=== PATIENT | female | born 1935 | race Caucasian/White ===

== ENCOUNTER 2017-08-19 10:17 | Emergency (ER) | payer OTHER ==
--- NOTE | 2017-08-19 10:45 | EDPHY ---
H & P Stated Complaint: LBP Source: Patient Exam Limitations: No limitations - Personal History Current Tetanus/Diphtheria Vaccine: Yes Tetanus Vaccine Date: <10 YRS - Medical/Surgical History Hx Asthma: No Hx Chronic Respiratory Disease: No Hx Diabetes: No Hx Cardiac Disease: No Hx Renal Disease: No Hx Cirrhosis: No Hx Alcoholism: No Other PMH: Richmond's, scoliosis, OA, hypothyroid - Social History Smoking Status: Never smoked Time Seen by Provider: 08/19/17 10:44 HPI/ROS: HPI: This is a 81-year-old female who presents with Chief Complaint: Low back pain Location: Left-sided lumbar Quality: Pain Duration: Since Friday Signs and Symptoms: No bleeding, + radiation, no numbness, no weakness, no tingling, no incontinence, + decreased range of motion, no swelling, + pain, no fever, no trauma, no urinary symptoms Timing: Rapid onset Severity: 10/03 Context: Patient presents with a history of scoliosis with rapid onset of left lower back pain that radiates down into her left buttock and then into her left anterior thigh and stops at the knee. Symptoms started on Friday. She reports that she has had no trauma or injury. She has been cleared out of storage shed but does not believe that she has done any heavy lifting or twisting that would have caused the symptoms. Patient reports that she has been using a cane to aid ambulation and secondary to difficulty with range of motion in her lower back. Patient reports that she has a"collapsed spine." She has chronic pain issues that are managed with oxycodone 10 mg daily, Tylenol, aspirin. She took these medications around 4:00 a.m. And has had no relief of the pain. She denies any urinary symptoms or change in urinary or bowel habits. 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 Modifying Factors: See above Comment: ROS: see HPI Constitutional: No fever, no chills, no weight loss Eyes: No blurred vision Respiratory: No shortness of breath, no cough Cardiovascular: No chest pain Gastrointestinal: No nausea, no vomiting no diarrhea Genitourinary: No dysuria Extremities: No myalgias Neurologic: No weakness, no numbness Skin: No rashes Hematologic: No bruising, no bleeding MEDICAL/SURGICAL/SOCIAL HISTORY: Medical history: Richmond's, scoliosis, OA, hypothyroid Surgical history: Denies Social history: Retired. Never smoked CONSTITUTIONAL: Extremely polite and cooperative elderly white female, awake and alert, no obvious distress HEENT: Atraumatic and normocephalic. BACK: No midline tenderness, left lower back lumbar reproducible tenderness in the paraspinous muscles; no paraspinous spasm, deep tendon reflexes 2/2, mild pain with left straight leg raise, no pain with right straight leg raise, No foot drop. Achilles reflexes are equal bilaterally. Not Able to walk on heels and toes without difficulty. Using cane to aid ambulation. EXTREMITIES: 2/2 pulses, strength 5/5, DIP/PIP/MCP flexion/extension intact with good light touch sensation. no deformities, no clubbing, no cyanosis or edema. NEUROLOGICAL: no focal neuro deficits. GCS 15. Light touch sensation intact. SKIN: Warm and dry, no erythema. no rash. Good capillary refill. (Nancy Nava) Constitutional: Initial Vital Signs Temperature (C) 36.6 C 08/19/17 10:34 Heart Rate 115 H 08/19/17 10:34 Respiratory Rate 16 08/19/17 10:34 Blood Pressure 193/93 H 08/19/17 10:34 O2 Sat (%) 94 08/19/17 10:34 O2 Delivery Mode Room Air Allergies/Adverse Reactions: atorvastatin calcium [From Lipitor] Allergy (Severe, Verified 08/19/17 10:39) MUSCLE WEAKNESS/CRAMPING IN THIGHS Home Medications: Medication Instructions Recorded Simvastatin [Zocor] 40 mg PO DAILY18 04/26/11 Aspirin [Aspirin 325 mg (OTC)] 325 mg PO Q6 PRN 09/12/11 Acetaminophen [Pain Reliever] 650 mg PO Q6 PRN 10/01/11 Cortisone Acetate [Cortisone (RX)] 37.5 mg PO DAILY 10/01/11 Lisinopril [Zestril 20 mg (*)] 10 mg PO DAILY 10/01/11 oxyCODONE IR [Oxycodone HCl Ir] 1 tab PO TID 10/01/11 Alendronate Sodium [Fosamax 70 MG 70 mg PO WE@0700 03/30/13 (RX)] Calcium Carbonate [Tums 500MG 750 mg PO DAILY 03/30/13 (OTC)] Levothyroxine [Synthroid 88 mcg 88 mcg PO DAILY06 03/30/13 (RX)] Loperamide HCl/Simethicone 1 each PO PRN PRN 03/30/13 [Imodium Multi-Symptom Rel Cplt] Multivitamins [Tab-A-Karel] 1 each PO DAILY 03/30/13 Sodium Chloride [Salt Tablet] 1 gm PO AD 03/30/13 Cyclobenzaprine [Flexeril 10 MG 10 mg PO Q8 PRN #12 tab 08/19/17 (*)] HYDROmorphone HCL [Dilaudid 2 mg 2 mg PO Q6 PRN #10 tab 08/19/17 (*)] Medical Decision Making - Diagnostics Imaging Results: Imaging Impressions Lumbar Spine MRI 08/19/17 10:53 Impression: 1. Old severe L4 compression fracture with retropulsion, likely representing a benign osteoporotic compression fracture. Consider DEXA bone scan evaluation for osteoporosis. 2. L3-L4: Severe central canal stenosis and bilateral neural foraminal stenosis , secondary to severe degenerative disk disease, severe bilateral facet arthropathy, and posterior retropulsion of the L4 cortex. 3. L2-L3: Severe central canal stenosis, secondary to severe degenerative disease with central disk herniation and bilateral facet arthropathy, also resulting in neural foraminal stenosis as described above. 4. Severe dextroscoliosis upper lumbar spine. 5. Please see above findings at specific disk levels. Findings and recommendations discussed with Emergency Department physician, Nancy Nava PA-C, at 1300 hours on August 19, 2017. Final report concurs with initial preliminary interpretation. ED Course/Re-evaluation: Due to advanced age and rapid onset of symptoms; MRI of the lumbar spine ordered. Patient given IV Dilaudid 1 mg. Called by Radiology who advised that MRI lumbar spine shows old fracture of the L4 compression that is moderate to severe in nature. Patient has multilevel degenerative changes but the most severe is at L2-L3 and L3-L4 with central canal stenosis. 1330: Reassessed patient who is ambulatory to the bathroom without deficits. Offered patient admission for pain control neurosurgery consult and she prefers to be discharged home with outpatient follow-up. Will not Rx Medrol Dosepak due to adrenal insufficiency and regular cortisone use. Patient given a prescription for #10 Dilaudid and Flexeril. No signs of neurovascular compromise/tenting of skin/compartment syndrome/ extremities and joints examined above and below area of concern and are neurovascularly intact/cauda equina syndrome. This patient was seen under the supervision of my secondary supervising physician. I evaluated care for this patient independently. Discussed this patient with Dr. Fields. (Nancy Nava) Differential Diagnosis: Back pain including but not limited to muscular pain, herniated disc, spine fracture, intra-abdominal causes and urinary tract infection. (Nancy Nava) Other Provider: PHYSICIAN DOCUMENTATION: The patient was evaluated and managed by the Physician Equities Trader and myself. I have reviewed the chart and agree with the findings and plan of care as documented. In addition, I examined the patient myself at 1420. History confirmed as back pain, nontraumatic. Physical findings as follows: Patient is alert and ambulatory to and from the bathroom with a cane without assistance. She declined admission or neurosurgical consultation, wants to go home with pain medication. Has capacity to make decisions. No objective neurological deficit on exam. I am the secondary supervising physician. (Robert Fields) - Data Points Medications Given: Discontinued Medications Diazepam (Valium) 2.5 mg IVP EDNOW ONE Stop: 08/19/17 12:00 Last Admin: 08/19/17 12:02 Dose: 2.5 mg Hydromorphone HCl (Dilaudid) 1 mg IVP EDNOW ONE Stop: 08/19/17 10:55 Last Admin: 08/19/17 11:15 Dose: 1 mg Methylprednisolone Sodium Succinate (Solu-Medrol) 125 mg IVP EDNOW ONE Stop: 08/19/17 13:01 Last Admin: 08/19/17 13:40 Dose: 125 mg Departure - Departure Disposition: Home, Routine, Self-Care Clinical Impression: Central stenosis of spinal canal, Lumbar degenerative disc disease, Lumbar radiculopathy, Facet arthropathy, lumbar Closed compression fracture of L4 lumbar vertebra Qualifiers: Encounter type: sequela Qualified Code(s): S32.040S - Wedge compression fracture of fourth lumbar vertebra, sequela Condition: Good Instructions: Vertebral Compression Fracture (ED), Lumbar Spinal Stenosis (ED) , Degenerative Disc Disease (ED) Additional Instructions: Activity:Limit activity to pain tolerance. Activity resulting in pain should be avoided. Please discontinue taking oxycodone while taking Dilaudid 2 mg tablet every 6 hours as needed for severe, breakthrough pain. Take Flexeril every 8 hours as needed for muscle spasms. Continue to take cortisone as prescribed. Follow-up with Neurosurgery in 5-7 days to discuss treatment plan for old compression fracture and severe degenerative disc disease with central canal stenosis. Return to the ER immediately if you have new or worsening back pain, fevers/ chills, flu like symptoms, incontinence or inability to urinate or defecate, weakness, paralysis, or any other symptom that concerns you Referrals: Tyler Faulkner MD [Primary Care Provider] - As per Instructions [place] MD [Medical Doctor] - 5-7 days, call for appt. Prescriptions: Cyclobenzaprine [Flexeril 10 MG (*)] 10 mg PO Q8 PRN #12 tab PRN Reason: Spasms HYDROmorphone HCL [Dilaudid 2 mg (*)] 2 mg PO Q6 PRN #10 tab PRN Reason: Pain, Severe
[2017-08-19] MEDS ORDERED: HYDROmorphONE/DILAUDID 2 MG/ML INJ IVP ONE (10:54)
[2017-08-19] MEDS ORDERED: DIAZEPAM 5 MG/ML 1 ML SYR ONE (11:57)
[2017-08-19] MEDS ORDERED: DIAZEPAM 5 MG/ML 1 ML SYR IVP ONE (11:59)
[2017-08-19] MEDS ORDERED: methylPREDNISolone SOD SUCC 125 MG/2 ML VIAL IVP ONE (13:00)
[2017-08-19 14:21] VITALS: BP 181/91
== END 2017-08-19 14:50 | disposition home or self-care (01) ==
DX: M84.48XA Pathological fracture, other site, initial encounter for fracture (principal); M54.16 Radiculopathy, lumbar region; M51.36 Other intervertebral disc degeneration, lumbar region; M48.061 Spinal stenosis, lumbar region without neurogenic claudication; M46.96 Unspecified inflammatory spondylopathy, lumbar region; Z79.82 Long term (current) use of aspirin
CPT/HCPCS: 72148; 96374; 96375; 99285; J1170; J2930; J3360

== ENCOUNTER 2017-11-23 16:52 | Inpatient (IN) | payer OTHER ==
--- NOTE | 2017-11-23 17:13 | EDPHY ---
H & P Stated Complaint: CHRONIC LOWBACK BACK/HAD INJ KALYANI SALAZAR NOT BETTER Time Seen by Provider: 11/23/17 17:01 HPI/ROS: HPI: This is an 81-year-old female who presents with Chief Complaint: CHRONIC LOWBACK BACK/HAD INJECTIONS SPINE MARTIN NOT BETTER Location: Lower back Quality: Pain Duration: Several months Signs and Symptoms: No radiation, no incontinence, + decreased range of motion , no swelling, no change in bowel or bladder habits Timing: Acute on chronic Severity: 11/03 Context: Patient has a history of Jamin's disease takes chronic steroid therapy, presents with complaints of acute on chronic lumbar back pain that is slowly worsening since July. She reports that she was seen in this emergency room on August 19, 2017 and had a lumbar spine MRI ordered. Chart review shows the lumbar spine showing old severe L4 compression fracture with retropulsion L3 -L4 severe central canal stenosis and bilateral neural foraminal stenosis secondary to severe degenerative disc disease and posterior rib pole troncoso of the L4 cortex, L2-L3 severe central canal stenosis secondary to severe degenerative disease with central disc herniation and bilateral facet arthropathy, severe dextroscoliosis. At that time she was referred to [facility]rology [facility] [place]. At the end of July beginning of August she had 3 lumbar GIRISH injections. She reports that these made her"feel funny". She reports that her head "felt like it was spacey." Patient took a taxi today as she has lives alone and has been using a cane to aid ambulation secondary to pain that is not relieved by taking 1-2 oxycodone as daily. She reports that in the past she has tried gabapentin but that made her"out of her head." Patient advises that she is not a surgical candidate. She reports that she is not able to perform activities of daily living today and unable to take out the trash which is not usually not her norm. She has not fallen or had any trauma. Reports that she has had a poor appetite but 8 salt today and has been taking sips of water. Patient also complains of bilateral hips but denies any degenerative changes in her hip. Modifying Factors: See above Comment: ROS: A comprehensive 10 system review of systems is otherwise negative aside from elements mentioned in the history of present illness. MEDICAL/SURGICAL/SOCIAL HISTORY: Medical history: Slick's, scoliosis, OA, hypothyroid, BACK PAIN, hyperlipidemia Surgical history: Lumbar GIRISH, spinal fusion Social history: Retired. Used to work on a ranch. Family history noncontributory. CONSTITUTIONAL: Tearful, elderly, petite, nontoxic-appearing white female, awake and alert, no obvious distress HEENT: Atraumatic and normocephalic. NECK: supple, no midline tenderness, flexion 45 degrees, extension 45 degrees, right and left lateral flexion 45 degrees. No meningismus. Cardiovascular: Normal S1/S2, regular rate, regular rhythm, without murmur rub or gallop. PULMONARY/CHEST: Symmetrical and nontender. no crepitus. Clear to auscultation bilaterally. Good air movement. No accessory muscle usage. ABDOMEN: Soft, nondistended, nontender, no ecchymosis. PELVIC: no pain with rocking; bilateral hips flexion 125 degrees, extension 30 degrees, with no pain internal rotation and no pain external rotation. BACK: Thoracic kyphoscoliosis noted. Moderate mid lumbar midline tenderness, no paraspinous spasm, deep tendon reflexes 2/2, mild pain with bilateral straight leg raise, No foot drop. Achilles reflexes are equal bilaterally. EXTREMITIES: 2/2 pulses, strength 5/5, decreased light touch sensation. no deformities, no clubbing, no cyanosis or edema. Lower extremities show chronic venous stay shows with her left ankle showing approximately 4 mm stage I superficial ulceration with clear drainage. NEUROLOGICAL: no focal neuro deficits. GCS 15. Light touch sensation intact. SKIN: Warm and dry, pallor, thin. no erythema. Good capillary refill. Source: Patient Exam Limitations: No limitations - Personal History Current Tetanus Diphtheria and Acellular Pertussis (TDAP): Yes Tetanus Vaccine Date: <10 YRS - Medical/Surgical History Hx Asthma: No Hx Chronic Respiratory Disease: No Hx Diabetes: No Hx Cardiac Disease: No Hx Renal Disease: No Hx Cirrhosis: No Hx Alcoholism: No Hx HIV/AIDS: No Hx Splenectomy or Spleen Trauma: No Other PMH: Jamin's, scoliosis, OA, hypothyroid BACK PAIN - Social History Smoking Status: Never smoked Constitutional: Initial Vital Signs Temperature (C) 36.8 C 11/23/17 16:57 Heart Rate 112 H 11/23/17 16:57 Respiratory Rate 18 11/23/17 16:57 Blood Pressure 175/84 H 11/23/17 16:57 O2 Sat (%) 92 11/23/17 16:57 O2 Delivery Mode Room Air Allergies/Adverse Reactions: atorvastatin calcium [From Lipitor] Allergy (Severe, Verified 11/23/17 16:52) MUSCLE WEAKNESS/CRAMPING IN THIGHS Home Medications: Medication Instructions Recorded Simvastatin [Zocor] 40 mg PO DAILY18 04/26/11 Aspirin [Aspirin 325 mg (OTC)] 325 mg PO Q6 PRN 09/12/11 Acetaminophen [Pain Reliever] 650 mg PO Q6 PRN 10/01/11 Cortisone Acetate [Cortisone (RX)] 37.5 - 50 mg PO DAILY 10/01/11 Lisinopril [Zestril 20 mg (*)] 20 mg PO DAILY 10/01/11 oxyCODONE IR [Oxycodone HCl Ir] 1 - 2 tab PO TID PRN 10/01/11 Calcium Carbonate [Tums 500MG 750 mg PO DAILY 03/30/13 (OTC)] Levothyroxine [Synthroid 88 mcg 88 mcg PO DAILY06 03/30/13 (RX)] Multivitamins [Tab-A-Karel] 1 each PO DAILY 03/30/13 Sodium Chloride [Salt Tablet] 1 gm PO AD PRN 03/30/13 Medical Decision Making ED Course/Re-evaluation: Vital signs reviewed and show mild tachycardia. Lumbar sacral MRI obtained 08/19/2017 and I do not feel of repeat is indicated at this time. No red flags at this time to indicate emergent MRI. Patient given 500 cc normal saline and Percocet x2 Laboratory studies ordered along with urinalysis ED decision to consult for admission for acute on chronic intractable lower back pain. Patient may benefit from physical therapy and occupational therapy consult inpatient. 1800: Spoke with hospitalist, Dr. Erazo, kindly agrees to admit patient to provide further care. Urinalysis and laboratory study results pending at time of consult. 2024: Labs reviewed. Leukocytosis likely secondary to steroid use. No clear signs of infection. This patient was seen under the supervision of my secondary supervising physician. I evaluated care for this patient independently. Discussed this patient with Dr. Dee. Differential Diagnosis: Back pain including but not limited to muscular pain, herniated disc, spine fracture, intra-abdominal causes and urinary tract infection. - Data Points Laboratory Results: Laboratory Results 11/23/17 17:30 11/23/17 17:30 11/23/17 11/23/17 11/23/17 17:50 17:30 17:30 WBC RBC Hgb Hct MCV MCH MCHC RDW Plt Count MPV Neut % (Auto) Lymph % (Auto) [place] % (Auto) Eos % (Auto) Baso % (Auto) Nucleat RBC Rel Count Absolute Neuts (auto) Absolute Lymphs (auto) Absolute Monos (auto) Absolute Eos (auto) Absolute Basos (auto) Absolute Nucleated RBC Immature Gran % Seg Neutrophils % Band Neutrophils % Lymphocytes % Monocytes % Eosinophils % Basophils % Metamyelocytes % Myelocytes % Promyelocytes % Blast Cells % Immature Gran # Absolute Seg Neuts Absolute Band Neuts Absolute Lymphocytes Absolute Monocytes Absolute Eosinophils Absolute Basophils Absolute Metamyelocyte Absolute Myelocytes Absolute Promyelocytes Absolute Plasma Cells Nucleated RBCs Absolute Blast Cells Plasma Cells % Platelet Estimate Polychromasia Oval Macrocytes PT 14.2 SEC SEC (12.0-15.0) INR 1.08 (0.83-1.16) APTT 27.5 SEC SEC (23.0-38.0) Sodium 142 mEq/L mEq/L (135-145) Potassium 2.9 mEq/L L mEq/L (3.3-5.0) Chloride 101 mEq/L mEq/L (97-110) Carbon Dioxide 26 mEq/l mEq/l (22-31) Anion Gap 15 mEq/L mEq/L (8-16) BUN 17 mg/dL mg/dL (7-23) Creatinine 0.5 mg/dL L mg/dL (0.6-1.0) Estimated GFR > 60 Glucose 84 mg/dL mg/dL (70-100) Calcium 8.9 mg/dL mg/dL (8.5-10.4) Total Bilirubin 0.2 mg/dL mg/dL (0.1-1.4) AST 40 IU/L IU/L (14-46) ALT 28 IU/L IU/L (9-52) Alkaline Phosphatase 215 IU/L H IU/L (38-126) Total Protein 5.8 g/dL L g/dL (6.3-8.2) Albumin 3.2 g/dL L g/dL (3.5-5.0) TSH < 0.015 uIU/mL L uIU/mL (0.465-4.680) Urine Color YELLOW Urine Appearance HAZY Urine pH 5.0 (5.0-7.5) Ur Specific [place] 1.027 (1.002-1.030) Urine Protein 2+ H (NEGATIVE) Urine Ketones 1+ H (NEGATIVE) Urine Blood 2+ H (NEGATIVE) Urine Nitrate NEGATIVE (NEGATIVE) Urine Bilirubin NEGATIVE (NEGATIVE) Urine Urobilinogen NEGATIVE EU EU (0.2-1.0) Ur Leukocyte Esterase NEGATIVE (NEGATIVE) Urine RBC 10-15 /hpf H /hpf (0-3) Urine WBC 5-10 /hpf H /hpf (0-3) Ur Epithelial Cells TRACE /lpf /lpf (NONE-1+) Urine Bacteria TRACE /hpf H /hpf (NONE SEEN) Hyaline Casts 25-50 /lpf H /lpf (0-1) Urine Mucus TRACE /lpf /lpf (NONE-1+) Urine Glucose NEGATIVE (NEGATIVE) 11/23/17 17:30 WBC 26.85 10^3/uL H 10^3/uL (3.80-9.50) RBC 3.47 10^6/uL L 10^6/uL (4.18-5.33) Hgb 11.7 g/dL L g/dL (12.6-16.3) Hct 34.7 % L % (38.0-47.0) MCV 100.0 fL H fL (81.5-99.8) MCH 33.7 pg pg (27.9-34.1) MCHC 33.7 g/dL g/dL (32.4-36.7) RDW 14.6 % % (11.5-15.2) Plt Count 502 10^3/uL H 10^3/uL (150-400) MPV 9.3 fL fL (8.7-11.7) Neut % (Auto) Not Reported Lymph % (Auto) Not Reported [place] % (Auto) Not Reported Eos % (Auto) Not Reported Baso % (Auto) Not Reported Nucleat RBC Rel Count Not Reported Absolute Neuts (auto) Not Reported Absolute Lymphs (auto) Not Reported Absolute Monos (auto) Not Reported Absolute Eos (auto) Not Reported Absolute Basos (auto) Not Reported Absolute Nucleated RBC Not Reported Immature Gran % Not Reported Seg Neutrophils % 92.0 % % Band Neutrophils % 0.0 % % Lymphocytes % 5.0 % % Monocytes % 3.0 % % Eosinophils % 0.0 % % Basophils % 0.0 % % Metamyelocytes % 0.0 % % Myelocytes % 0.0 % % Promyelocytes % 0.0 % % Blast Cells % 0.0 % % Immature Gran # Not Reported Absolute Seg Neuts 24.70 10^/uL H 10^/uL (1.70-6.50) Absolute Band Neuts 0.00 10^3/uL 10^3/uL (0.00-0.70) Absolute Lymphocytes 1.34 10^3/uL 10^3/uL (1.00-3.00) Absolute Monocytes 0.81 10^3/uL H 10^3/uL (0.30-0.80) Absolute Eosinophils 0.00 10^3/uL L 10^3/uL (0.03-0.40) Absolute Basophils 0.00 10^3/uL L 10^3/uL (0.02-0.10) Absolute Metamyelocyte 0.00 10^3/mL 10^3/mL (0.00-0.00) Absolute Myelocytes 0.00 10^3/mL 10^3/mL (0.00-0.00) Absolute Promyelocytes 0.00 10^3/uL 10^3/uL (0.00-0.00) Absolute Plasma Cells 0.00 10^3/uL 10^3/uL (0.00-0.00) Nucleated RBCs 0 /100 WBC /100 WBC (0-0) Absolute Blast Cells 0.00 10^3/uL 10^3/uL (0.00-0.00) Plasma Cells % 0.0 % % Platelet Estimate INCREASED H (ADEQ) Polychromasia 1+ H Oval Macrocytes 1+ H PT INR APTT Sodium Potassium Chloride Carbon Dioxide Anion Gap BUN Creatinine Estimated GFR Glucose Calcium Total Bilirubin AST ALT Alkaline Phosphatase Total Protein Albumin TSH Urine Color Urine Appearance Urine pH Ur Specific [place] Urine Protein Urine Ketones Urine Blood Urine Nitrate Urine Bilirubin Urine Urobilinogen Ur Leukocyte Esterase Urine RBC Urine WBC Ur Epithelial Cells Urine Bacteria Hyaline Casts Urine Mucus Urine Glucose Medications Given: Hydrocodone Bitart/Acetaminophen (Stuart 5/325) 1 - 2 tab PO Q4HRS PRN PRN Reason: Pain, Moderate Able to Take PO Stop: 12/03/17 18:02 Last Admin: 11/23/17 20:15 Dose: 1 tab Lisinopril (Zestril) 20 mg PO DAILY RODNEY Stop: 05/22/18 19:14 Last Admin: 11/23/17 20:22 Dose: 20 mg Senna/Docusate Sodium (Senokot-S) 1 - 2 tab PO BID RODNEY PRN Reason: Protocol Stop: 05/22/18 20:59 Last Admin: 11/23/17 20:14 Dose: 1 tab Discontinued Medications Sodium Chloride (Ns) 500 mls @ 1,000 mls/hr IV EDNOW ONE PRN Reason: Protocol Stop: 11/23/17 17:58 Last Admin: 11/23/17 17:55 Dose: 500 mls Oxycodone/Acetaminophen (Percocet 5/325) 2 tab PO EDNOW ONE Stop: 11/23/17 17:24 Last Admin: 11/23/17 17:33 Dose: 2 tab Potassium Chloride (Klor-Con) 10 - 40 meq PO ONCE ONE PRN Reason: Protocol Stop: 11/23/17 19:44 Last Admin: 11/23/17 20:15 Dose: 40 meq Potassium Chloride (Klor-Con) 10 - 40 meq PO ONCE ONE PRN Reason: Protocol Stop: 11/23/17 20:06 Last Admin: 11/23/17 20:19 Dose: Not Given Departure - Departure Disposition: [facility] Acute Clinical Impression: Acute exacerbation of chronic low back pain, DDD (degenerative disc disease), lumbar, Central stenosis of spinal canal, Herniation of intervertebral disc of lumbar spine, Venous ulcer of left leg Closed compression fracture of L4 lumbar vertebra Qualifiers: Encounter type: subsequent encounter Fracture healing: with delayed healing Qualified Code(s): S32.040G - Wedge compression fracture of fourth lumbar vertebra, subsequent encounter for fracture with delayed healing Condition: Fair
[2017-11-23] MEDS ORDERED: OXYCODONE/APAP 5/325 TAB PO ONE (17:23)
[2017-11-23] MEDS ORDERED: NS 500 ML IV ONE (17:29)
[2017-11-23] MEDS ORDERED: ONDANSETRON 4 MG/2 ML VIAL IVP PRN (18:03)
[2017-11-23] MEDS ORDERED: ONDANSETRON DISINTEGRATING 4 MG TAB PO PRN (18:03)
[2017-11-23] MEDS ORDERED: HYDROmorphONE/DILAUDID 1 MG/ML INJ IVP PRN (18:03)
[2017-11-23] MEDS ORDERED: ACETAMINOPHEN 325 MG TAB PO PRN (18:03)
[2017-11-23 18:42] LABS: INR 1.08 (0.83-1.16); PROTIME(PATIENT) 14.2 SEC (12.0-15.0)
[2017-11-23] MEDS ORDERED: ASPIRIN 325 MG TAB PO PRN (19:04)
[2017-11-23] MEDS ORDERED: PROTOCOL POTASSIUM 1 DOSE MISC PRN (19:05)
--- NOTE | 2017-11-23 19:06 | PDGENHP ---
History and Physical - Chief Complaint Lower back pain - History of Present Illness Ary Walker is a 81 yo F with a PMHx of Cusing's disease, chronic lumbar back pain, hypothyroidism, HTN who presents to [facility] for acute on chronic LBP. She reports that it has been progressively worsening since July. She was seen in the [facility] ED 08/19/2017 when lumbar MRI was performed which showed old severe L4 compression fracture with retropulsion L3-L4 severe central canal stenosis and bilateral neural foraminal stenosis secondary to severe degenerative disc disease and posterior rib pole troncoso of the L4 cortex, L2-L3 severe central canal stenosis secondary to severe degenerative disease with central disc herniation and bilateral facet arthropathy, severe dextroscoliosis. At that time she was referred [facility]. At the end of July beginning of August she had 3 lumbar GIRISH injections. She did not have significant improvement after these. She reports she has been having difficulty ambulating 2/2 to pain, using a cane for walking. She has been taking 1-2 oxycodone daily without any relief. She denies any falls or LOC. History Information - Allergies/Home Medication List Allergies/Adverse Reactions: atorvastatin calcium [From Lipitor] Allergy (Severe, Verified 11/23/17 16:52) MUSCLE WEAKNESS/CRAMPING IN THIGHS Home Medications: Simvastatin [Zocor] 40 mg PO DAILY18 04/26/11 [Last Taken 11/22/17] Aspirin [Aspirin 325 mg (OTC)] 325 mg PO Q6 PRN 09/12/11 [Last Taken 11/23/17] Acetaminophen [Pain Reliever] 650 mg PO Q6 PRN 10/01/11 [Last Taken 11/23/17] Cortisone Acetate [Cortisone (RX)] 37.5 - 50 mg PO DAILY 10/01/11 [Last Taken ] Lisinopril [Zestril 20 mg (*)] 20 mg PO DAILY 10/01/11 [Last Taken 04/06/13 07: 00] oxyCODONE IR [Oxycodone HCl Ir] 1 - 2 tab PO TID PRN 10/01/11 [Last Taken ] Calcium Carbonate [Tums 500MG (OTC)] 750 mg PO DAILY 03/30/13 [Last Taken ] Levothyroxine [Synthroid 88 mcg (RX)] 88 mcg PO DAILY06 03/30/13 [Last Taken ] Multivitamins [Tab-A-Karel] 1 each PO DAILY 03/30/13 [Last Taken 11/23/17] Sodium Chloride [Salt Tablet] 1 gm PO AD PRN 03/30/13 [Last Taken 04/04/13] I have personally reviewed and updated: family history, medical history, social history, surgical history - Past Medical History Additional medical history: Jamin's disease, scoliosdis, hypothyroid, HTN - Surgical History Additional surgical history: B/l adrenalectomy - Family History Additional family history: Parents - Social History Smoking Status: Never smoked Review of Systems Review of Systems: ROS: 10pt was reviewed & negative except for what was stated in HPI & below Physical Exam Physical Exam: Temp Pulse Resp BP Pulse Ox 36.8 C 97 17 184/89 H 93 11/23/17 18:39 11/23/17 18:39 11/23/17 18:39 11/23/17 18:39 11/23/17 18:39 Constitutional: no apparent distress Eyes: PERRL Ears, Nose, Mouth, Throat: moist mucous membranes Cardiovascular: regular rate and rhythym Respiratory: no respiratory distress, clear to auscultation Gastrointestinal: soft, non-tender abdomen Genitourinary: no bladder tenderness Skin: warm Musculoskeletal: full muscle strength, pain with ROM Neurologic: AAOx3 Psychiatric: interacting appropriately Lab Data & Imaging Review 11/23/17 17:30 11/23/17 17:30 PT 14.2 SEC (12.0-15.0) 11/23/17 17:30 INR 1.08 (0.83-1.16) 11/23/17 17:30 APTT 27.5 SEC (23.0-38.0) 11/23/17 17:30 Sodium 142 mEq/L (135-145) 11/23/17 17:30 Potassium 2.9 mEq/L (3.3-5.0) L 11/23/17 17:30 Chloride 101 mEq/L (97-110) 11/23/17 17:30 Carbon Dioxide 26 mEq/l (22-31) 11/23/17 17:30 Anion Gap 15 mEq/L (8-16) 11/23/17 17:30 BUN 17 mg/dL (7-23) 11/23/17 17:30 Creatinine 0.5 mg/dL (0.6-1.0) L 11/23/17 17:30 Estimated GFR > 60 11/23/17 17:30 Glucose 84 mg/dL (70-100) 11/23/17 17:30 Calcium 8.9 mg/dL (8.5-10.4) 11/23/17 17:30 Total Bilirubin 0.2 mg/dL (0.1-1.4) 11/23/17 17:30 AST 40 IU/L (14-46) 11/23/17 17:30 ALT 28 IU/L (9-52) 11/23/17 17:30 Alkaline Phosphatase 215 IU/L (38-126) H 11/23/17 17:30 Total Protein 5.8 g/dL (6.3-8.2) L 11/23/17 17:30 Albumin 3.2 g/dL (3.5-5.0) L 11/23/17 17:30 Urine Color YELLOW 11/23/17 17:50 Urine Appearance HAZY 11/23/17 17:50 Urine pH 5.0 (5.0-7.5) 11/23/17 17:50 Ur Specific [place] 1.027 (1.002-1.030) 11/23/17 17:50 Urine Protein 2+ (NEGATIVE) H 11/23/17 17:50 Urine Ketones 1+ (NEGATIVE) H 11/23/17 17:50 Urine Blood 2+ (NEGATIVE) H 11/23/17 17:50 Urine Nitrate NEGATIVE (NEGATIVE) 11/23/17 17:50 Urine Bilirubin NEGATIVE (NEGATIVE) 11/23/17 17:50 Urine Urobilinogen NEGATIVE EU (0.2-1.0) 11/23/17 17:50 Ur Leukocyte Esterase NEGATIVE (NEGATIVE) 11/23/17 17:50 Urine RBC 10-15 /hpf (0-3) H 11/23/17 17:50 Urine WBC 5-10 /hpf (0-3) H 11/23/17 17:50 Ur Epithelial Cells TRACE /lpf (NONE-1+) 11/23/17 17:50 Urine Bacteria TRACE /hpf (NONE SEEN) H 11/23/17 17:50 Hyaline Casts 25-50 /lpf (0-1) H 11/23/17 17:50 Urine Mucus TRACE /lpf (NONE-1+) 11/23/17 17:50 Urine Glucose NEGATIVE (NEGATIVE) 11/23/17 17:50 Assessment & Plan Assessment: Acute exacerbation of chronic low back pain (Acute) - Seen in ED in 07/2017 with MRI performed which showed old L4 compression fx with retropulsion L3-L4 severe central canal stenosis and bilateral neural foraminal stenosis secondary to severe degenerative disc disease and posterior rib pole troncoso of the L4 cortex, L2-L3 severe central canal stenosis secondary to severe degenerative disease with central disc herniation and bilateral facet arthropathy, severe dextroscoliosis - S/p spinal injections by Dr. Cabrera ([facility] [place] with no significant improvement - Has been using oxycodone 5 mg q6 hours at home - Denies red flag symptoms of weakness, numbness, incontinence - Holding off on repeat MRI for now given lack of red flag sx - Consult neurosurgery in the AM for further evaluation - Pain control PRN Venous ulcer of left leg (Acute) - Reports swelling of LE with chronic steroid use - Wound care consulted Leukocytosis - WBC 26.8 on admission - Afebrile - No clear source of infection other than venous ulcer which does not appear infected - Will hold off on abx for now, if febrile or persistent leukocytosis treat as appropriate Hypertensive Urgency - BP 180/100 on admission to floor - Patient reports this is normal for her - Restarting home Lisinopril Jamin's Disease s/p adrenalectomy - Continue home steroids, 37.5 mg qd Hypothyroidism - Continue home synthroid FEN: PRN Diet: Regular Ppx: Lovenox Code: Full Dispo: Admit to Observation
[2017-11-23 19:13] LABS: PLATELET COUNT 502 10^3/uL (150-400)
[2017-11-23] MEDS ORDERED: LACTULOSE 20 GM/30 ML UDCUP PO PRN (19:32)
[2017-11-23] MEDS ORDERED: MAGNESIUM HYDROXIDE 30 ML UDCUP PO PRN (19:32)
[2017-11-23] MEDS ORDERED: BISACODYL 10 MG SUPP PR PRN (19:32)
[2017-11-23] MEDS ORDERED: POTASSIUM CL 10 MEQ TAB PO ONE ×2 (19:43→20:05)
[2017-11-23] MEDS: SENNOSIDES/DOCUSATE SODIUM TAB PO SCH (20:14)
[2017-11-23] MEDS: HYDROCODONE/APAP 5/325 TAB PO PRN (20:15)
[2017-11-23] MEDS: LISINOPRIL 20 MG TAB PO SCH (20:22)
[2017-11-23] MEDS: LIDOCAINE 4%/MENTHOL 1% PATCH TD SCH (23:12)
[2017-11-24] MEDS: HYDROCODONE/APAP 5/325 TAB PO PRN ×5 (04:12→21:48)
[2017-11-24 04:41] LABS: PLATELET COUNT 473 10^3/uL (150-400)
[2017-11-24] MEDS: LEVOTHYROXINE 88 MCG TAB PO SCH (05:12)
[2017-11-24] MEDS: ENOXAPARIN 40 MG/0.4 ML SYR SC SCH (09:18)
[2017-11-24] MEDS: CALCIUM CARBONATE 500 MG CHEWABLE TAB PO SCH (09:19)
[2017-11-24] MEDS: LISINOPRIL 20 MG TAB PO SCH (09:21)
[2017-11-24] MEDS: CORTISONE PO SCH (09:21)
[2017-11-24] MEDS: SENNOSIDES/DOCUSATE SODIUM TAB PO SCH ×2 (09:22→21:47)
[2017-11-24] MEDS ORDERED: POTASSIUM CL 10 MEQ TAB PO ONE (09:39)
--- NOTE | 2017-11-24 10:49 | WOCRNPDOC ---
[facility] Advanced Assessment Note - Skin Integrity Problem, Advanced Assess Left Anterior Lower Leg Venous Stasis Ulcer Dressing Type: Open to Air Exudate Amount: Minimal Exudate Characteristic(s): Serous Megan Wound Tissue: Blanching, Weeping, Hemosiderin Staining Wound Bed Color: Yellow Wound Edges: Attached Site Odor: None Site Measurement - Head-to-Toe Length X Width X Depth (cm): 0.6x0.4x0.1 Skin Integrity Problem Comment: Wound cleansed with NS and gauze. Small open area on patient's troncoso that is weeping. Patient states this has been going on for 5 or 6 days. Patient noted to have several "bruises" on her lower legs which she states have been there for years and called them "hemorrhages under the skin." No edema noted on the lower legs, however, bilateral feet have non- pitting edema that when palpated, fluid is palpable under the skin. Alban NICOLAS was in room and made aware. Bilateral lower legs have hemosiderian staining and venous dermatitis. Wound care will sign off. If there is an increase in drainage and the dressing is being changed more than once a day, please reconsult wound care.
[2017-11-24] MEDS: PATCH REMOVAL 1 EA PATCH TD SCH (11:20)
--- NOTE | 2017-11-24 11:38 | HOSPPROG ---
Hospitalist Progress Note Assessment/Plan: Hypokalemia - K 2.9 on admission - Will order replacement protocol - Currently on Lisinopril, if K not improved, consider substituting for other BP medication that does not effect K Objective: Vital Signs Temp Pulse Resp BP Pulse Ox 37.5 C 112 H 20 178/86 H 94 11/24/17 07:55 11/24/17 07:55 11/24/17 07:55 11/24/17 09:21 11/24/17 07:55 Laboratory Results 11/24/17 04:20 11/24/17 04:20 11/23/17 11/24/17 11/25/17 05:59 05:59 05:59 Output Total 200 100 Balance -200 -100 PT 14.2 SEC (12.0-15.0) 11/23/17 17:30 INR 1.08 (0.83-1.16) 11/23/17 17:30 ICD10 Worksheet Patient Problems: Problems Problem Status Onset Osteoarthritis of hip Active Empyema Active Hypokalemia Active Closed compression fracture of L4 lumbar vertebra Acute Acute exacerbation of chronic low back pain Acute DDD (degenerative disc disease), lumbar Acute Central stenosis of spinal canal Acute Herniation of intervertebral disc of lumbar spine Acute Venous ulcer of left leg Acute
--- NOTE | 2017-11-24 11:41 | HOSPPROG ---
Hospitalist Progress Note Assessment/Plan: 81y female with c/o back pain. First encounter, chart reviewed. D/W neurosurgery. #Acute exacerbation of chronic low back pain (Acute) - Seen in ED in 07/2017 with MRI performed which showed old L4 compression fx with retropulsion L3-L4 severe central canal stenosis and bilateral neural foraminal stenosis secondary to severe degenerative disc disease and posterior rib pole troncoso of the L4 cortex, L2-L3 severe central canal stenosis secondary to severe degenerative disease with central disc herniation and bilateral facet arthropathy, severe dextroscoliosis - S/p spinal injections by Dr. Cabrera ([facility] [place] with no significant improvement - Has been using oxycodone 5 mg q6 hours at home - Denies red flag symptoms of weakness, numbness, incontinence - Holding off on repeat MRI for now given lack of red flag sx - Consulted neurosurgery for further evaluation - Pain control PRN #Venous ulcer of left leg (Acute) - Reports swelling of LE with chronic steroid use - Wound care consulted #Hypokalemia - K 2.9 on admission - replacement protocol - Currently on Lisinopril, if K not improved, consider substituting for other BP medication that does not effect K #Leukocytosis - WBC 26.8 on admission - Afebrile - No clear source of infection other than venous ulcer which does not appear infected - Will hold off on abx for now, if febrile or persistent leukocytosis treat as appropriate -will get blood cultures, consider further imaging of the spine, recent injection -consider ID consult #Hypertensive Urgency - BP 180/100 on admission to floor - Patient reports this is normal for her - Restarting home Lisinopril #Jamin's Disease s/p adrenalectomy - Continue home steroids, 37.5 mg qd #Hypothyroidism - Continue home synthroid -TSH low, consider adjusting dose FEN: PRN Diet: Regular Ppx: Lovenox Code: Full Dispo: Change to inpt status pt will need further evaluation in hospital setting blood cultures consider MRI, last pone done 07/2017 Subjective: C/O severe back pain. Resting. No other issues. Objective: Vital Signs Temp Pulse Resp BP Pulse Ox 37.5 C 112 H 20 178/86 H 94 11/24/17 07:55 11/24/17 07:55 11/24/17 07:55 11/24/17 09:21 11/24/17 07:55 Laboratory Results 11/24/17 04:20 11/24/17 04:20 11/23/17 11/24/17 11/25/17 05:59 05:59 05:59 Output Total 200 100 Balance -200 -100 PT 14.2 SEC (12.0-15.0) 11/23/17 17:30 INR 1.08 (0.83-1.16) 11/23/17 17:30 - Physical Exam Constitutional: appears nourished, chronically ill appearing, uncomfortable Eyes: PERRL, anicteric sclera, EOMI Ears, Nose, Mouth, Throat: moist mucous membranes, hearing normal, ears appear normal Cardiovascular: No JVD, No tachycardia, No edema Respiratory: no respiratory distress, no rales or rhonchi, reduced air movement Gastrointestinal: normoactive bowel sounds, No tenderness, No ascites Skin: warm, normal color, No mottled Musculoskeletal: joint tenderness, pain with ROM, muscular tenderness, abnormal gait, generalized weakness Neurologic: AAOx3 Psychiatric: interacting appropriately, not anxious, not encephalopathic ICD10 Worksheet Patient Problems: Problems Problem Status Onset Acute exacerbation of chronic low back pain Acute Central stenosis of spinal canal Acute Closed compression fracture of L4 lumbar vertebra Acute DDD (degenerative disc disease), lumbar Acute Herniation of intervertebral disc of lumbar spine Acute Venous ulcer of left leg Acute Empyema Active Hypokalemia Active Osteoarthritis of hip Active
--- NOTE | 2017-11-24 13:19 | GCON ---
CONSULTATION HISTORY AND PHYSICAL DATE OF CONSULTATION: 11/24/2017 CHIEF COMPLAINT: Low back pain with bilateral lower extremity pain. HISTORY OF PRESENT ILLNESS: Ary is an 81-year-old female who was seen by Neurosurgical services at 12:15 p.m. on 11/24/2017. She has a history of Liberty's disease, chronic low back pain as well as hypothyroidism and hypertension. She came in the emergency department on 11/23/2017, for acute on chronic lower back pain. She reports this pain had progressively worsened since July. She was seen in the ER in July of 2017, had a lumbar spine MRI that was performed which showed old, severe L4 compression fracture and retropulsion at L3-4, severe canal stenosis at this level and bilateral neural foraminal stenosis secondary to severe degenerative disk disease. She also had severe central stenosis at L2-3. There was disk herniation and facet arthropathy as well noted at this level. She was referred to [facility], was also seen by Dr. Grace at [facility], and recommendation for injection therapies was given. She has had 2 injections with minimal improvement. She presents at this time with worsening back pain as well as bilateral lower extremity pain that started on the left side and has now progressed over to the right that she describes in the buttocks that radiates toward the front in her anterior thighs. She has no changes in her bowel or bladder habits. She denies any fall or injury. No loss of consciousness. She is currently taking 1-2 oxycodone per day and is receiving [place] here in the hospital for her pain. She denies any headache. No neck pain. No chest pain or shortness of breath. No abdominal complaints. She describes pain in her back pain and bilateral lower extremity pain mainly on the right now and not so much on the left, although it started on the left. ALLERGIES: Atorvastatin. MEDICATIONS PRIOR TO ADMISSION: Zocor, aspirin, acetaminophen, cortisone, Zestril, oxycodone, Tums, Synthroid, multivitamin and salt tabs. PAST MEDICAL HISTORY: Significant for Jamin's disease, scoliosis, hypothyroidism, hypertension. PAST SURGICAL HISTORY: Bilateral adrenalectomy. FAMILY HISTORY: Reviewed and noncontributory. SOCIAL HISTORY: Patient is . She lives in the [place] area. She has never smoked. No risk factors for HIV or AIDS. REVIEW OF SYSTEMS: Complete 10-point review of systems was negative except noted in HPI. PHYSICAL EXAMINATION: GENERAL: This is an awake, alert, oriented female in no acute distress. VITALS: Most recent vital signs blood pressure 142/71 with a MAP of 94, heart rate of 98, 18 respirations, 94% on 1.5 L, temperature 36.8. HEENT. Head is normocephalic, atraumatic. Pupils are equal, round and reactive to light. EOMI is intact. Full visual conrad by confrontation. Ears are patent. Nose is patent. NECK: Soft and supple. No midline tenderness. Full range of motion in flexion, extension, lateral bending, rotation. No nuchal rigidity. RESPIRATORY/CARDIAC: Deferred. ABDOMEN: Soft, nontender. No peritoneal signs. /RECTAL: Deferred. NEURO: Patient awake, alert, oriented to name, place, location, date, time and situation. Memory is intact to immediate, past and current events. Speech: No aphasia, dysarthria, dysphonia. Cranial nerves 2-12 grossly intact. Motor: Patient has 5/5 strength in all muscle groups of bilateral upper and lower extremities to include deltoids, biceps, triceps, brachioradialis, wrist flexors/extensors, satellite instruction facilitator, intrinsic fingers, iliopsoas, quadriceps, hamstring, plantar flexion, dorsiflexion, EHL testing. Sensation grossly intact to light touch throughout all dermatome distributions, upper extremities. Negative straight leg raise. Negative HAY test. Reflexes of the biceps and triceps are 2+/4. Achilles and patellar 1+/4. Toes are downgoing bilaterally. Ventura's negative. Babinski negative. No clonus. MEDICAL DECISION-MAKING/DIAGNOSTIC STUIES: Laboratory tests obtained 11/24/2017 , show a white count of 22.71, down from 26.85; H and H of 12.6 and 37.2; with a platelet count of 473; noted increased segs of 18.85. Coags: PT of 14.2, INR of 1.08, PTT of 27.5. Chemistry on 11/24/2017: Sodium 142, potassium 3.1, chloride 103, CO2 31, BUN 16, creatinine 0.4 and glucose of 70. Urine showed 2 + protein, 2+ ketones and 2+ blood, 10-15 RBCs, 5-10 WBCs noted. Imagin. Pending MRI of the lumbar spine with and without contrast. 2. X-rays of lumbar spine with flexion-extension views ordered. IMPRESSION: 1. Low back pain with bilateral lower extremity pain, history of spinal stenosis. 2. Venous ulcer, left leg. 3. Hyperkalemia. 4. Leukocytosis. 5. Hypertension history as well as Liberty's and hypothyroidism. PLAN/DISCUSSION: Ary is an 81-year-old female who came in yesterday to the hospital, was admitted to the Internal Medicine service with low back pain and bilateral lower extremity pain. She describes mainly pain ow on the right side. She did have pain on the left side, it did start on the left side. She describes pain in both legs and the same distribution of pain in the buttocks, and it radiates over to the anterior thigh, but not much spread of pain below the knee. She has a white count that has been significantly high at 26 and now it is 22. We did order an MRI of her lumbar spine with and without contrast. They did blood cultures on her as well. She has x-rays pending of the lumbar spine with flexion-extension views. The patient was seen and evaluated both by myself and Dr. Foley; will review the images together once these are obtained , develop a plan accordingly. All questions and concerns were answered. Patient understands and agrees. /[id number]/MODL MTDD
--- NOTE | 2017-11-24 14:12 | ASMTCMCOM ---
CM Note CM Note Notes: Patient admitted with acute chronic back pain. She was seen in the ER in July for the same. Per patient, she is normally independent but the pain is interfering with her ADLs. She was seen by neurosurgery today, and they will make a plan with her based on her imaging. Therapies will see her tomorrow. Case Management will follow. Date Signed: 11/24/2017 02:12 PM Electronically Signed By:Lenka Husain RN
[2017-11-24] MEDS ORDERED: GADOBUTROL 10 ML VIAL IVP ONE (14:20)
--- NOTE | 2017-11-24 15:12 | PDMN ---
Medical Necessity Medical necessity: MCG M63 back pain, 81 yo w/ acute on chronic lower back pain , acute venous ulcer, leukocytosis (wbc 26.8 on admit) and hypertensive emergency. Prior MRI of back shows old L4 compression fx with retropulsion L3- L4 severe central canal stenosis and bilateral neural foraminal stenosis secondary to severe degenerative disc disease and posterior rib pole troncoso of the L4 cortex, L2-L3 severe central canal stenosis secondary to severe degenerative disease with central disc herniation and bilateral facet arthropathy, severe dextroscoliosis. has been receiving spinal injections w/o improvement. Neurosurgery and wound consults ordered and pending, MRI ordered and pending. Pt cont with HTN, tachy 118, WBC still elevated 22.17, hypokalemic (3.1), BC pending. Pt requires another MN for ongoing dx, monitoring and treatment. Hx becka's disease and adrenalectomy. Change to IP status 11/24/17 @1152 per [employer]
[2017-11-24] MEDS: POLYETHYLENE GLYCOL 3350 17 GM PKT PO PRN (17:52)
[2017-11-24] MEDS: SIMVASTATIN 40 MG PO SCH (18:48)
[2017-11-24] MEDS: LIDOCAINE 4%/MENTHOL 1% PATCH TD SCH (21:50)
[2017-11-24] MEDS ORDERED: POTASSIUM CL 20 MEQ TAB PO ONE (23:52)
[2017-11-25] MEDS: HYDROCODONE/APAP 5/325 TAB PO PRN ×3 (02:42→18:04)
[2017-11-25] MEDS ORDERED: oxyCODONE IR 5 MG TAB PO ONE (04:46)
[2017-11-25] MEDS: LEVOTHYROXINE 88 MCG TAB PO SCH (05:09)
--- NOTE | 2017-11-25 08:15 | NEUSURGPN ---
Assessment/Plan: Assessment: 81 yo female admitted to with lower back pain and BLE anterior thigh pain that is mainly on the right now Plan: -lumbar spine: pt had xrays of the L spine that show a severe scoliotic curve as well as DDD. No instability noted. MRI of the L spine done as well and this shows severe stenosis mainly at L2-L4 with multilevel DDD and foraminal stenosis. -I will review the images with Dr Foley -surgery would be very difficult for her with regards to the severity of her problem -our hope is to find a nonsurgical treatment for her at this time -I will d/w Dr Foley but will likely recommend another round of injections for her -continue with PT/OT -call with any questions or concerns -pt understands and agrees Subjective: Awake and alert. NAD. Eating/drinking and voiding. No f/c/n/v/d. Objective: AAO x 3, PERRLA/EOMI no droop CN 2-12 grossly intact +lt touch 5/5 BUE/BLE = Neuro Check Frequency: per routine Urinary Catheter in Place: No - Physician Discussed Patient with : [facility] Physical Exam - Vitals, I&O, Labs I and O 11/24/17 11/25/17 11/26/17 05:59 05:59 05:59 Intake Total 740 Output Total 700 Balance 40 Weight 45.359 kg Intake: Oral (ml) 740 Output: Urine (ml) 700 Toilet 700 Other: Number of Voids Toilet 1 Number of Stools Toilet 2 Vital Signs Temp Pulse Resp BP Pulse Ox 36.6 C 108 H 16 144/65 H 97 11/25/17 04:00 11/25/17 04:00 11/25/17 04:00 11/25/17 04:00 11/25/17 04:00 Laboratory Results 11/25/17 04:34 11/25/17 04:34 ICD10 Worksheet Patient Problems: Problems Problem Status Onset Acute exacerbation of chronic low back pain Acute Central stenosis of spinal canal Acute Closed compression fracture of L4 lumbar vertebra Acute DDD (degenerative disc disease), lumbar Acute Herniation of intervertebral disc of lumbar spine Acute Venous ulcer of left leg Acute Empyema Active Hypokalemia Active Osteoarthritis of hip Active
[2017-11-25] MEDS ORDERED: HYDROmorphone HCL 0.5 MG/0.5 ML SYR ONE (08:38)
[2017-11-25] MEDS ORDERED: NS 1,000 ML IV SCH ×2 (09:00→12:30)
[2017-11-25] MEDS: ENOXAPARIN 40 MG/0.4 ML SYR SC SCH ×2 (09:02→12:05)
[2017-11-25] MEDS: LISINOPRIL 20 MG TAB PO SCH (09:17)
[2017-11-25] MEDS: CALCIUM CARBONATE 500 MG CHEWABLE TAB PO SCH (09:18)
[2017-11-25] MEDS: CORTISONE PO SCH (09:18)
[2017-11-25] MEDS: PATCH REMOVAL 1 EA PATCH TD SCH (09:18)
[2017-11-25] MEDS: SENNOSIDES/DOCUSATE SODIUM TAB PO SCH ×2 (09:19→20:48)
[2017-11-25] MEDS ORDERED: ALTEPLASE 2 MG VIAL IVP PRN (11:00)
--- NOTE | 2017-11-25 12:17 | HOSPPROG ---
Hospitalist Progress Note Assessment/Plan: 81y female with c/o back pain. D/W neurosurgery. D/W Dr Bonds. #Acute exacerbation of chronic low back pain (Acute) - MRI done, NSG rec injection. Abdulkadir hold for now - S/p spinal injections by Dr. Cabrera ([facility] with no significant improvement - Has been using oxycodone 5 mg q6 hours at home - Pain control PRN #Venous ulcer of left leg (Acute) - Reports swelling of LE with chronic steroid use - Wound care consulted #Hypokalemia - K 2.9 on admission - replacement protocol - Currently on Lisinopril, if K not improved, consider substituting for other BP medication that does not effect K #Leukocytosis - WBC 26.8 on admission - now with fever -CXR shows PNA -Blood cultures pending -PICC -abx per ID -CT chest -appreciate ID consult #Fever -BC -CXR -further evaluation #Hypertensive Urgency - BP 180/100 on admission to floor - Patient reports this is normal for her - home Lisinopril #Jamin's Disease s/p adrenalectomy - Continue home steroids, 37.5 mg qd #Hypothyroidism - Change synthroid dose -TSH low #Tachycardia -EKG pending -related to illness #Lumbar wound - present prior to admission #Weakness -severe FEN: PRN Diet: Regular Ppx: Lovenox Code: Full Dispo: inpt status pt will need further evaluation in hospital setting blood cultures CT chest further evaluation Subjective: Very thirsty. Still ahving pain all over. Difficulty moving. Objective: Vital Signs Temp Pulse Resp BP Pulse Ox 37.1 C 123 H 20 158/80 H 89 L 11/25/17 11:44 11/25/17 11:44 11/25/17 11:44 11/25/17 11:44 11/25/17 11:44 Laboratory Results 11/25/17 04:34 11/25/17 04:34 11/24/17 11/25/17 11/26/17 05:59 05:59 05:59 Intake Total 740 Output Total 700 200 Balance 40 -200 PT 14.2 SEC (12.0-15.0) 11/23/17 17:30 INR 1.08 (0.83-1.16) 11/23/17 17:30 - Physical Exam Constitutional: chronically ill appearing, uncomfortable, cachectic Eyes: PERRL, anicteric sclera, EOMI Ears, Nose, Mouth, Throat: hearing normal, ears appear normal, dry mucous membranes Cardiovascular: tachycardia, No JVD, No edema Respiratory: no respiratory distress, no rales or rhonchi, reduced air movement Gastrointestinal: normoactive bowel sounds, No tenderness, No ascites Skin: warm, pressure ulcer, No mottled Musculoskeletal: joint tenderness, pain with ROM, muscular tenderness, generalized weakness Neurologic: AAOx3 Psychiatric: not anxious, not encephalopathic, poor insight, poor judgement ICD10 Worksheet Patient Problems: Problems Problem Status Onset Acute exacerbation of chronic low back pain Acute Central stenosis of spinal canal Acute Closed compression fracture of L4 lumbar vertebra Acute DDD (degenerative disc disease), lumbar Acute Herniation of intervertebral disc of lumbar spine Acute Venous ulcer of left leg Acute Empyema Active Hypokalemia Active Osteoarthritis of hip Active
--- NOTE | 2017-11-25 12:34 | GCON ---
INFECTIOUS DISEASE CONSULTATION DATE OF CONSULTATION: 11/25/2017 REFERRING PHYSICIAN: Jacqui Lewis NP REASON FOR CONSULTATION: Fever and leukocytosis. HISTORY OF PRESENT ILLNESS: Patient is an 81-year-old female with a past medical history of empyema due to Streptococcus intermedius in 2011, who I am asked to see in consultation for fever and leukocy tosis. The patient was admitted on 11/24/2017, with worsening low back pain. She has been receiving back injections at [facility] over the last several months for progressive back pain. She describes having significant pain in her inguinal region and thighs bilaterally. Ultimately, she could no alia tova walk in association with her pain and was having to use a wheelchair. She has felt progressively weak with poor appetite. She did not note fever ir chills prior to admission. At time of presentation, she was noted to have a white blood cell count of 27,000 with left shift. T his has remained elevated in the 22,000 range. Blood cultures obtained yesterday are showing no grow th to date. Earlier this morning, she had a fever to 38.4 and developed progressive tachycardia. e notes mild cough without significant sputum production. No recent dental work or dental problems. No recent travel. No nausea, vomiting, or diarrhea. Additional evaluation has included a flu by PCR testing, which is pending. Chest x-ray was performed and shows significant right-sided consolidation with new consolidation present in the upper lung fie ld suggesting pneumonia. Apical pleural thickening and nodularity were also present. MRA of the lum bar spine shows severe central canal narrowing at L2-3 and L3-4 with no evidence of osteomyelitis, di skitis, or epidural abscess. Given the above findings, I am now asked to assist in her ongoing manag ement. 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 PAST SURGICAL HISTORY: Chest tube drainage of empyema, adrenalectomy, exploratory laparotomy with si gmoid colectomy and end-colostomy with subsequent reversal. CURRENT MEDICATIONS: [place] as needed for pain, aspirin 325 mg as needed, Tums 750 mg orally daily, c ortisone 37.5 mg p.o. daily, Lovenox 40 mg subcu daily, Dilaudid for severe pain, Synthroid 88 mcg p. o. daily, lisinopril 20 mg p.o. daily, Zocor 40 mg p.o. daily. ALLERGIES: Lipitor associated muscle cramping. SOCIAL HISTORY: Patient does not smoke, drink alcohol, or use drugs. 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 No recent travel. FAMILY HISTORY: Grandparents with diabetes. REVIEW OF SYSTEMS: Outside that noted in the HPI, the remainder of 10-system review is unremarkable. PHYSICAL EXAMINATION: VITAL SIGNS: Temperature maximum 38.4, heart rate 123, respiratory rate 20, b lood pressure 158/80, oxygen saturation 89% on 1.5 L. GENERAL: Patient is chronically ill-appearing . She appears nontoxic. HEENT: There is no scleral icterus, conjunctival injection, or conjunctiva l petechiae. Oropharynx shows dry mucous membranes with dentition in fair repair. There is no sinus tenderness. There is no nasal discharge. NECK: Supple without palpable lymphadenopathy or thyrome santos. CHEST: There are crackles and decreased breath sounds in the right lower and mid lung conrad. Respiratory effort is normal. There is occasional weak cough. CARDIOVASCULAR: Tachycardic, with a 2/6 systolic murmur at the left upper sternal border. No gallops or rubs noted. ABDOMEN: Soft, n ontender, nondistended. There is no palpable organomegaly. Bowel sounds are present. MUSCULOSKELET AL: There is no cyanosis, clubbing, or edema. SKIN: Venous insufficiency changes of both lower ext remities are present. There is pressure related erythema with small areas of skin breakdown over the lumbar spine around area of scoliotic curvature without purulence. There is a small ulceration of t he right lateral malleolar region. There is a small shallow ulceration over left anterior troncoso. ADAMA ROLOGIC: Patient is alert and interacts appropriately. Cranial nerves 2-12 are grossly intact. Sen sation is intact. Muscle bulk is decreased throughout. Motor strength in the feet is 5/5 bilaterall y. LYMPHATICS: No cervical or supraclavicular nodes. LABORATORY/IMAGING: White blood cell count 22.5, hematocrit 31.3, platelets 448,; prior differential showed neutrophils 83%. Creatinine 0.4. AST 40, ALT 28, bilirubin 0.2, alkaline phosphatase 215, a lbumin 3.2. INR is 1.1. Flu by PCR is pending. Urinalysis shows 5-10 white blood cells and 10-15 r ed blood cells. Chest x-ray showing new right upper lung field infiltrate. MRI of the spine is noted above. IMPRESSION: Fever and leukocytosis: Most likely, this is associated with new onset right-sided pneu monia. Patient has prior history of empyema on this side as well and some pleural thickening, likely residual from prior empyema. Influenza swabs are pending to ensure no evidence of influenza contrib uting. Most likely pathogens would include Streptococcus pneumoniae or other typical pathogens assoc iated with community-acquired pneumonia. Legionella would be in the differential diagnosis, although no discrete exposures. Aspiration also of consideration, although no difficulty with swallowing. O ther considerations would include potential of primary bacteremia from organisms, such as Staphylococ cus aureus. RECOMMENDATIONS: 1. Ceftriaxone 2 g IV daily. 2. Azithromycin 500 mg IV daily. 3. Follow up blood cultures as available. 4. Follow up influenza swab as available. 5. Urine Legionella and Streptococcus pneumoniae antigens. 6. CT scan of chest to further characterize right-sided pulmonary infiltrate. 7. Will review with Hospital Service consideration of stress dose steroids based on patient's underl librado adrenal insufficiency on chronic replacement doses of hydrocortisone. 8. Thank you for this consultation. We will continue to follow the patient with you. /[id number]/MODL
[2017-11-25] MEDS ORDERED: POTASSIUM Cl (KCl) 50 ML IV ONE (14:09)
[2017-11-25] MEDS: AZITHROMYCIN IV 500 MG in NS 250 ML IV SCH (14:50)
--- NOTE | 2017-11-25 17:01 | CPEKG ---
Test Reason : OPEN Blood Pressure : / mmHG Vent. Rate : 110 BPM Atrial Rate : 110 BPM P-R Int : 130 ms QRS Dur : 075 ms QT Int : 335 ms P-R-T Axes : 040 008 059 degrees QTc Int : 454 ms Sinus tachycardia Probable left atrial enlargement Low voltage, precordial leads Compared with 10/01/2011 QT now shorter Confirmed by Estrella Manzano ([id number]) on 11/25/2017 5:01:16 PM Referred By: Confirmed By:Estrella Manzano
[2017-11-25] MEDS: POLYETHYLENE GLYCOL 3350 17 GM PKT PO PRN (18:06)
[2017-11-25] MEDS: SIMVASTATIN 40 MG PO SCH (18:08)
[2017-11-25] MEDS: LIDOCAINE 4%/MENTHOL 1% PATCH TD SCH (20:46)
[2017-11-26] MEDS: HYDROCODONE/APAP 5/325 TAB PO PRN ×4 (05:15→20:55)
[2017-11-26] MEDS: LEVOTHYROXINE 75 MCG TAB PO SCH (05:15)
[2017-11-26] MEDS: CALCIUM CARBONATE 500 MG CHEWABLE TAB PO SCH (07:43)
[2017-11-26] MEDS: ENOXAPARIN 40 MG/0.4 ML SYR SC SCH (07:45)
[2017-11-26] MEDS: CORTISONE PO SCH (07:45)
[2017-11-26] MEDS: LISINOPRIL 20 MG TAB PO SCH (07:46)
[2017-11-26] MEDS: AZITHROMYCIN IV 500 MG in NS 250 ML IV SCH (08:33)
[2017-11-26] MEDS ORDERED: POTASSIUM Cl (KCl) 50 ML IV ONE (09:59)
--- NOTE | 2017-11-26 10:02 | WOCRNPDOC ---
WOCRN Advanced Assessment Note - Skin Integrity Problem, Advanced Assess Left Anterior Lower Leg Venous Stasis Ulcer Dressing Type: Allevyn Life Dressing Description: Intact, Shadowed Exudate Amount: Minimal Exudate Characteristic(s): Serous Integumentary Issue Intervention: Dressing Removed Megan Wound Tissue: Hemosiderin Staining, Venous Dermatitis, Dry Megan Wound Swelling: Mild Wound Bed Color: Yellow Site Measurement - Head-to-Toe Length X Width X Depth (cm): 0.6x0.4x0.1 Skin Integrity Problem Comment: No change from last time wound care rounded on the patient. Shelby NICOLAS said the dressing was placed Friday and due to be changed today. wound is only mildly draining. Edema in feet seems improved since Friday. Will continue with current plan of care. Shelby NICOLAS and Michelle RN in room for care. Wound care will round again next week. Lower Back Pressure Injury Dressing Type: Allevyn Life Dressing Description: Clean/Dry, Intact Exudate Amount: None Integumentary Issue Intervention: Visualized Under Dressing Megan Wound Tissue: Blanching Wound Bed Color: Purple Site Measurement - Head-to-Toe Length X Width X Depth (cm): Approximately 5x2 area of purple discoloration with small opening in the center measuring 0.5x0.5x0.1 Pressure Injury Stage: Deep Tissue Injury (DTI) Pressure Injury Present on Admit: Yes Skin Integrity Problem Comment: Area of purple discoloration along spine with a center area that is open that is a deep tissue injury that is present on admission. The injury is likely 48 to 72 hours old. Patient has a severe curvature of her spine which makes it difficult to get her positioned off of her back with comfort. This wound will continue to evolve over the next week or so and the open area may get larger. No evidence of skin breakdown at sacrum or ishiums noted. Right lateral malleolus is red, but blanching. Allevyn dressing on prophylactically and patient is in offloading boots. Shelby NICOLAS and Michelle NICOLAS in room for care. Wound care will round again next week.
[2017-11-26] MEDS: PATCH REMOVAL 1 EA PATCH TD SCH (11:23)
[2017-11-26] MEDS: SENNOSIDES/DOCUSATE SODIUM TAB PO SCH ×2 (11:23→22:54)
[2017-11-26] MEDS ORDERED: SODIUM CHLORIDE 1,000 MG TAB PO PRN (11:49)
--- NOTE | 2017-11-26 14:56 | ASMTCMCOM ---
CM Note CM Note Notes: Pt amenable to OT rec for SNF. Pt accepted at [facility], [facility] and [facility], chooses [facility] (Shira met with pt today). Pt to have video swallow tomorrow. CM to follow. D/c plan of care: [facility] when medically stable. Date Signed: 11/26/2017 02:41 PM Electronically Signed By:ERICK Holm
--- NOTE | 2017-11-26 16:58 | PCMIDPN ---
Assessment/Plan: # RUL/RML PNA, leukocytosis improving, AF 24 hours, off O2 supplementation, feeling stronger. CT scan of chest reviewed --agree with swallowing eval --continue with ceftriaxone + azithromycin --minimal coughing so will hold off on getting sputum --legionella An pending # Adrenal insufficiency: on chr steroids # Diarrhea: cdiff neg meds ceftriaxone 2gm IV daily #2 azithromycin 500mg IV #2 micro 11/24 blood cx (2) NGTD Subjective: improving appetite still with frequent liquid stool no rash or itching Objective: Vital Signs Temp Pulse Resp BP Pulse Ox 36.6 C 104 H 14 145/82 H 95 11/26/17 15:48 11/26/17 15:48 11/26/17 15:48 11/26/17 15:48 11/26/17 15:48 Laboratory Results 11/26/17 05:10 11/26/17 05:10 11/25/17 11/26/17 11/27/17 05:59 05:59 05:59 Intake Total 014 873 4726 Output Total 700 475 Balance 40 -75 1205 - Physical Exam General Appearance: alert, no apparent distress EENT: No thrush Respiratory: crackles (R upper and mid lung field), No accessory muscle use Cardiac/Chest: regular rate, rhythm Extremities: pedal edema Abdomen: non-tender, soft Pelvic Exam: No guajardo Skin: warm/dry, pallor, No diaphoresis, No rash Neuro/Psych: alert, normal mood/affect, oriented x 3 - Time Spent With Patient Time Spent with Patient: greater than 25 minutes Time Spent with Patient: Greater than 25 minutes spent on this patients care, greater than 50% of time spent counseling, educating, and coordinating care regarding the above mentioned plan. ICD10 Worksheet Patient Problems: Problems Problem Status Onset Acute exacerbation of chronic low back pain Acute Central stenosis of spinal canal Acute Closed compression fracture of L4 lumbar vertebra Acute DDD (degenerative disc disease), lumbar Acute Herniation of intervertebral disc of lumbar spine Acute Venous ulcer of left leg Acute Empyema Active Hypokalemia Active Osteoarthritis of hip Active
[2017-11-26] MEDS: SIMVASTATIN 40 MG PO SCH (19:22)
[2017-11-26] MEDS ORDERED: POTASSIUM CL 10 MEQ TAB PO ONE (20:53)
[2017-11-26] MEDS: LIDOCAINE 4%/MENTHOL 1% PATCH TD SCH (20:56)
--- NOTE | 2017-11-26 22:05 | HOSPPROG ---
Hospitalist Progress Note Assessment/Plan: #Acute exacerbation of chronic low back pain (Acute) - MRI done, NSG rec injection, she declines for now - S/p spinal injections by Dr. Cabrera ([facility] [place] with no significant improvement - Pain control PRN #Venous ulcer of left leg (Acute) - says secondary to chronic steroid use - Wound care appreciated #Hypokalemia - K 2.9 on admission, improved now - replacement protocol #R sided PNA - CXR/CT revwd -Blood cultures pending -PICC -tmax 101 10 -abx per ID -concerning for aspiration, CAMPAIGN MANAGER ordered #Hypertensive Urgency - BP 180/100 on admission to floor - Lisinopril, adjust meds as needed #Jamin's Disease s/p adrenalectomy - Continue home steroids, 37.5 mg qd -consider stress doing increase #Hypothyroidism -TSH low so increased replacement dose #Tachycardia -sinus- likely from fever/illness #Lumbar wound - present prior to admission -appreciate wound care assistance #Weakness -severe -PT/OT -SNF at discharge #anemia -hgb 10.4 -watch closely for stability Ppx: Lovenox Code: Full Dispo: >48 hours inpt until bd cxs return/decision to change to PO meds, evaluation of aspiration risks, then to SNF Subjective: Feels very weak, but better than at admission. Not much appetite trying to eat. Says wouldnt suprise her if trouble swallowing. No cp/SOB. Pain in back constant, OK with meds. Friend in room with her. Objective: Vital Signs Temp Pulse Resp BP Pulse Ox 97.9 F 104 H 14 145/82 H 95 11/26/17 15:48 11/26/17 15:48 11/26/17 15:48 11/26/17 15:48 11/26/17 15:48 Laboratory Results 11/26/17 05:10 11/26/17 18:59 11/25/17 11/26/17 11/27/17 11:59 11:59 11:59 Intake Total 839 206 8256 Output Total 900 275 Balance -165 597 3127 PT 14.2 SEC (12.0-15.0) 11/23/17 17:30 INR 1.08 (0.83-1.16) 11/23/17 17:30 - Time Spent With Patient Time Spent with Patient: greater than 35 minutes Time Spent with Patient: Greater than 35 minutes spent on this patients care, greater than 50% of time spent counseling, educating, and coordinating care regarding the above mentioned plan. - Pending Discharge Pending Discharge Within 24 Hours: Yes Pending Discharge Date: 11/28/17 Pending Discharge Time: 11:00 - Physical Exam Constitutional: no apparent distress Eyes: anicteric sclera Ears, Nose, Mouth, Throat: moist mucous membranes, hearing normal Cardiovascular: regular rate and rhythym Respiratory: no respiratory distress, reduced air movement (R side) Psychiatric: interacting appropriately, not anxious, not encephalopathic ICD10 Worksheet Patient Problems: Problems Problem Status Onset Acute exacerbation of chronic low back pain Acute Central stenosis of spinal canal Acute Closed compression fracture of L4 lumbar vertebra Acute DDD (degenerative disc disease), lumbar Acute Herniation of intervertebral disc of lumbar spine Acute Venous ulcer of left leg Acute Empyema Active Hypokalemia Active Osteoarthritis of hip Active
[2017-11-27] MEDS: HYDROCODONE/APAP 5/325 TAB PO PRN ×5 (01:15→18:41)
[2017-11-27] MEDS: LEVOTHYROXINE 75 MCG TAB PO SCH (05:59)
[2017-11-27] MEDS ORDERED: HYDROmorphone HCL 0.5 MG/0.5 ML SYR IVP PRN (09:30)
--- NOTE | 2017-11-27 10:32 | PCMIDPN ---
Assessment/Plan: 1. Multilobar pneumonia: Slowly improving on ceftriaxone and azithromycin. Change azithromycin to p.o.-- hopefully she will tolerate this without GI issues. White blood cell count is decreasing, energy level improving, and oxygen requirement down. Repeat CBC tomorrow. Will also ask respiratory therapy to work with patient and teach her how to use an incentive spirometer. Urine Legionella antigen pending. Not really expectorating at all, which is not unusual in an elderly patient with pneumonia. 2. 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 Asked patient whether not she had had a flu vaccine, and she reported, " I do not do vaccines.". I did not press the issue. 3. Oral candidiasis: Start clotrimazole troches 5 times daily. Over 25 min spent with this patient today. 11/27/17 10:37 Subjective: Starting to feel better. Tells me that she ate a pancake this morning, which is a huge deal for her, and a sign of improvement. Not coughing. No more loose stool. Had severe back pain when sitting in the chair. She states that this is less of an issue when she is up moving around or in bed. Objective: Vital Signs Ceftriaxone 2 g IV daily/azithromycin 500 mg daily day 3 T-max 36.8 95% on 1-1/2 L Temp Pulse Resp BP Pulse Ox 36.7 C 86 16 164/76 H 95 11/27/17 07:40 11/27/17 07:40 11/27/17 07:40 11/27/17 07:40 11/27/17 07:40 Laboratory Results 11/26/17 05:10 11/27/17 04:35 11/26/17 11/27/17 11/28/17 05:59 05:59 05:59 Intake Total 400 1855 Output Total 475 350 Balance -75 1505 Blood cultures negative Flu PCR negative Urine Legionella antigen pending Pneumococcal antigen pending - Physical Exam General Appearance: alert, no apparent distress EENT: thrush Respiratory: crackles (Right base, otherwise moving good air. No dullness to percussion) Cardiac/Chest: regular rate, rhythm (Soft 1 to 2/6 systolic ejection murmur right upper sternal border only), systolic murmur Extremities: other (PICC line right upper extremity looks fine) Abdomen: non-tender, soft Skin: other (Thin skin with multiple ecchymoses, otherwise no embolic stigmata or rashes) ICD10 Worksheet Patient Problems: Problems Problem Status Onset Acute exacerbation of chronic low back pain Acute Central stenosis of spinal canal Acute Closed compression fracture of L4 lumbar vertebra Acute DDD (degenerative disc disease), lumbar Acute Herniation of intervertebral disc of lumbar spine Acute Venous ulcer of left leg Acute Empyema Active Hypokalemia Active Osteoarthritis of hip Active
[2017-11-27] MEDS ORDERED: AZITHROMYCIN 250 MG TAB PO SCH ×2 (10:45)
[2017-11-27] MEDS: AZITHROMYCIN IV 500 MG in NS 250 ML IV SCH (11:52)
[2017-11-27] MEDS: CALCIUM CARBONATE 500 MG CHEWABLE TAB PO SCH (12:28)
[2017-11-27] MEDS: CORTISONE PO SCH (12:29)
[2017-11-27] MEDS: ENOXAPARIN 40 MG/0.4 ML SYR SC SCH (12:36)
[2017-11-27] MEDS: LISINOPRIL 20 MG TAB PO SCH (12:48)
[2017-11-27] MEDS: CLOTRIMAZOLE 10 MG TROCHE PO SCH ×4 (12:53→22:31)
--- NOTE | 2017-11-27 13:12 | HOSPPROG ---
Hospitalist Progress Note Assessment/Plan: Nayeli is an 81 y/o female who presented to the ER w progressive back cash. She has had 3 GIRISH lumbar injections since August without significant improvement. Today is my first encounter w the patient, chart reviewed. Reviewed her care w Dr Richardson. #R sided PNA, multilobar -abx changed to Unasyn -reviewed her video esophagram and she is aspirating, has poor pharyngeal motility -blood cx show no growth -PICC in place #dysphagia -ST to work with her -diet has been changed to dysphagia -she does not want any type of feeding tube #Acute exacerbation of chronic low back pain (Acute) - MRI done, NSG rec injection, she declines for now - S/p spinal injections by Dr. Cabrera ([facility] [place] with no significant improvement - Pain control PRN -says her pain is only when she is out of bed #Venous ulcer of left leg (Acute) - says secondary to chronic steroid use - Wound care appreciated #Hypokalemia - K 2.9 on admission, improved now - replacement protocol #Hypertensive Urgency - BP is elevated this morning - Lisinopril -add PRN meds #Elfrida's Disease s/p adrenalectomy - Continue home steroids, 37.5 mg qd -consider stress doing increase #Hypothyroidism -TSH low so increased replacement dose #Tachycardia -sinus #oral candidiasis -clotrimazole troches 5 times daily. #Lumbar wound - present prior to admission -appreciate wound care assistance #Weakness -severe -PT/OT -SNF at discharge #anemia -hgb 10.4 -watch closely for stability #plan: guajardo removal; abx changed to Unasyn, may need palliative care consult; she is likely to continue aspirating with recurrent pneumonia's. Reviewed w the patient and her daughter concerns as noted. Subjective: Nayeli says back pain isn't bad while in bed, no c/o shortness of breath. Objective: Vital Signs Temp Pulse Resp BP Pulse Ox 36.7 C 86 16 164/76 H 95 11/27/17 07:40 11/27/17 07:40 11/27/17 07:40 11/27/17 12:48 11/27/17 07:40 Laboratory Results 11/26/17 05:10 11/27/17 04:35 11/26/17 11/27/1718 05:59 05:59 05:59 Intake Total 400 1855 Output Total 475 350 Balance -75 1505 PT 14.2 SEC (12.0-15.0) 11/23/17 17:30 INR 1.08 (0.83-1.16) 11/23/17 17:30 - Physical Exam Constitutional: chronically ill appearing Eyes: PERRL Ears, Nose, Mouth, Throat: hearing normal Cardiovascular: regular rate and rhythym, tachycardia Respiratory: no respiratory distress, reduced air movement Skin: warm, No normal color (pale) Musculoskeletal: generalized weakness Neurologic: AAOx3 Psychiatric: interacting appropriately ICD10 Worksheet Patient Problems: Problems Problem Status Onset Acute exacerbation of chronic low back pain Acute Central stenosis of spinal canal Acute Closed compression fracture of L4 lumbar vertebra Acute DDD (degenerative disc disease), lumbar Acute Herniation of intervertebral disc of lumbar spine Acute Venous ulcer of left leg Acute Empyema Active Hypokalemia Active Osteoarthritis of hip Active
[2017-11-27] MEDS: SENNOSIDES/DOCUSATE SODIUM TAB PO SCH ×2 (14:06→22:32)
[2017-11-27] MEDS: PATCH REMOVAL 1 EA PATCH TD SCH (14:06)
[2017-11-27] MEDS: hydrALAZINE 10 MG TAB PO PRN (16:08)
[2017-11-27] MEDS: SIMVASTATIN 40 MG PO SCH (18:41)
[2017-11-27] MEDS ORDERED: POTASSIUM CL 10 MEQ TAB PO ONE (20:49)
[2017-11-27] MEDS: LIDOCAINE 4%/MENTHOL 1% PATCH TD SCH (22:30)
[2017-11-28] MEDS: HYDROCODONE/APAP 5/325 TAB PO PRN ×4 (01:26→18:20)
[2017-11-28] MEDS: AMPICILLIN/SULBACTAM 3 GM in NS 100 ML IV SCH ×3 (05:23→17:24)
[2017-11-28] MEDS: LEVOTHYROXINE 75 MCG TAB PO SCH (05:23)
[2017-11-28] MEDS: CLOTRIMAZOLE 10 MG TROCHE PO SCH ×5 (05:23→21:42)
[2017-11-28 05:44] LABS: PLATELET COUNT 402 10^3/uL (150-400)
[2017-11-28] MEDS: LISINOPRIL 20 MG TAB PO SCH (08:17)
[2017-11-28] MEDS: CORTISONE PO SCH (08:17)
[2017-11-28] MEDS: SENNOSIDES/DOCUSATE SODIUM TAB PO SCH ×2 (08:17→21:42)
[2017-11-28] MEDS: CALCIUM CARBONATE 500 MG CHEWABLE TAB PO SCH (08:19)
[2017-11-28] MEDS: ENOXAPARIN 40 MG/0.4 ML SYR SC SCH (08:20)
[2017-11-28] MEDS ORDERED: POTASSIUM CL 10 MEQ TAB PO ONE ×2 (08:38→21:10)
--- NOTE | 2017-11-28 08:50 | HOSPPROG ---
Hospitalist Progress Note Assessment/Plan: Nayeli is an 81 y/o female who presented to the ER w progressive back cash. She has had 3 GIRISH lumbar injections since August without significant improvement. #R sided PNA, multilobar -abx changed to Unasyn -reviewed her video esophagram and she is aspirating, has poor pharyngeal motility -blood cx show no growth -PICC in place -leukocytosis is improving #dysphagia -ST to work with her -diet has been changed to dysphagia -she does not want any type of feeding tube #Acute exacerbation of chronic low back pain (Acute) - MRI done, NSG rec injection, she declines for now - S/p spinal injections by Dr. 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 #Lumbar wound - present prior to admission -appreciate wound care assistance #Weakness -severe -PT/OT -SNF at discharge #anemia -hgb 10.4 -watch closely for stability #plan: continue current care, she is improving overall. Subjective: Nayeli is feeling better today, back still hurts but doesn't want meds changed and doesn't want a steroid injection. Objective: Vital Signs Temp Pulse Resp BP Pulse Ox 36.7 C 92 16 183/81 H 92 11/28/17 07:37 11/28/17 07:37 11/28/17 07:37 11/28/17 08:17 11/28/17 07:37 Laboratory Results 11/28/17 05:30 11/28/17 05:30 11/27/17 11/28/17 11/29/17 05:59 05:59 05:59 Intake Total 1855 Output Total 350 950 Balance 1505 -950 PT 14.2 SEC (12.0-15.0) 11/23/17 17:30 INR 1.08 (0.83-1.16) 11/23/17 17:30 - Physical Exam Constitutional: no apparent distress, chronically ill appearing Eyes: PERRL Ears, Nose, Mouth, Throat: hearing normal Cardiovascular: regular rate and rhythym, tachycardia Respiratory: no respiratory distress Gastrointestinal: normoactive bowel sounds Skin: warm, No normal color (pale) Musculoskeletal: generalized weakness Neurologic: AAOx3 Psychiatric: interacting appropriately ICD10 Worksheet Patient Problems: Problems Problem Status Onset Acute exacerbation of chronic low back pain Acute Central stenosis of spinal canal Acute Closed compression fracture of L4 lumbar vertebra Acute DDD (degenerative disc disease), lumbar Acute Herniation of intervertebral disc of lumbar spine Acute Venous ulcer of left leg Acute Empyema Active Hypokalemia Active Osteoarthritis of hip Active
[2017-11-28] MEDS: PATCH REMOVAL 1 EA PATCH TD SCH (09:34)
[2017-11-28] MEDS: hydrALAZINE 10 MG TAB PO PRN (10:56)
[2017-11-28] MEDS: SIMVASTATIN 40 MG PO SCH (17:22)
--- NOTE | 2017-11-28 17:29 | CPEKG ---
Test Reason : OPEN Blood Pressure : / mmHG Vent. Rate : 097 BPM Atrial Rate : 097 BPM P-R Int : 132 ms QRS Dur : 072 ms QT Int : 376 ms P-R-T Axes : 035 022 058 degrees QTc Int : 478 ms Sinus rhythm Probable left atrial enlargement Low voltage, precordial leads Prolonged QT Anteroseptal infarct, age indeterminate Compared with 11/25/2017 QT longer Confirmed by Estrella Manzano ([id number]) on 11/28/2017 5:29:14 PM Referred By: Confirmed By:Estrella Manzano
[2017-11-28] MEDS: LIDOCAINE 4%/MENTHOL 1% PATCH TD SCH (21:42)
[2017-11-29] MEDS: AMPICILLIN/SULBACTAM 3 GM in NS 100 ML IV SCH ×3 (00:38→11:59)
[2017-11-29] MEDS: HYDROCODONE/APAP 5/325 TAB PO PRN ×3 (05:03→13:17)
[2017-11-29] MEDS: LEVOTHYROXINE 75 MCG TAB PO SCH (06:27)
[2017-11-29] MEDS: CLOTRIMAZOLE 10 MG TROCHE PO SCH ×3 (06:27→13:19)
[2017-11-29] MEDS: LISINOPRIL 20 MG TAB PO SCH (08:54)
[2017-11-29] MEDS: CORTISONE PO SCH (08:54)
[2017-11-29] MEDS ORDERED: POTASSIUM CL 10 MEQ TAB PO ONE (09:01)
[2017-11-29] MEDS: ENOXAPARIN 40 MG/0.4 ML SYR SC SCH (09:02)
[2017-11-29] MEDS: CALCIUM CARBONATE 500 MG CHEWABLE TAB PO SCH (09:03)
--- NOTE | 2017-11-29 09:03 | HOSPPROG ---
Hospitalist Progress Note Assessment/Plan: Nayeli is an 81 y/o female who presented to the ER w progressive back cash. She has had 3 GIRISH lumbar injections since August without significant improvement. #R sided PNA, multilobar -abx changed to Unasyn -reviewed her video esophagram and she is aspirating, has poor pharyngeal motility -blood cx show no growth -PICC in place -leukocytosis is improving #dysphagia -ST to work with her -diet has been changed to dysphagia -she does not want any type of feeding tube -very motivated to do the exercises #Acute exacerbation of chronic low back pain (Acute) - MRI done, NSG rec injection, she declines for now - S/p spinal injections by Dr. Cabrera ([facility] [place] with no significant improvement - Pain control PRN -says her pain is only when she is out of bed #Venous ulcer of left leg (Acute) - says secondary to chronic steroid use - Wound care appreciated #Hypokalemia - K 2.9 on admission, improved now - replacement protocol #Hypertensive Urgency - BP is elevated this morning (added low dose scheduled Norvasc) - Lisinopril -add PRN meds #Jamin's Disease s/p adrenalectomy - Continue home steroids, 37.5 mg qd -consider stress doing increase #Hypothyroidism -TSH low so increased replacement dose #Tachycardia,sinus (asymptomatic) -this is intermittent -reviewed w her the causes of this and can't r/o a PE unless a CTA is performed. She doesn't want this procedure. #oral candidiasis -clotrimazole troches 5 times daily. #Lumbar wound - present prior to admission -appreciate wound care assistance #Weakness -severe -PT/OT -SNF at discharge #anemia -hgb 10.4 -watch closely for stability #plan: dc to [facility] soon/reviewed her care w Dr Richardson Subjective: Nayeli is feeling well today, no complaints. Objective: Vital Signs Temp Pulse Resp BP Pulse Ox 36.6 C 91 17 163/83 H 93 11/29/17 07:19 11/29/17 07:19 11/29/17 07:19 11/29/17 07:19 11/29/17 07:19 Laboratory Results 11/28/17 05:30 11/29/17 05:10 11/28/17 11/29/17 11/30/17 05:59 05:59 05:59 Intake Total 320 Output Total 950 200 350 Balance -950 120 -350 PT 14.2 SEC (12.0-15.0) 11/23/17 17:30 INR 1.08 (0.83-1.16) 11/23/17 17:30 - Physical Exam Constitutional: no apparent distress, appears nourished Eyes: PERRL Ears, Nose, Mouth, Throat: hearing normal Cardiovascular: regular rate and rhythym, tachycardia Respiratory: no respiratory distress Gastrointestinal: normoactive bowel sounds Skin: warm, No normal color (pale) Musculoskeletal: generalized weakness Neurologic: AAOx3 Psychiatric: interacting appropriately ICD10 Worksheet Patient Problems: Problems Problem Status Onset Osteoarthritis of hip Active Empyema Active Hypokalemia Active Closed compression fracture of L4 lumbar vertebra Acute Acute exacerbation of chronic low back pain Acute DDD (degenerative disc disease), lumbar Acute Central stenosis of spinal canal Acute Herniation of intervertebral disc of lumbar spine Acute Venous ulcer of left leg Acute
[2017-11-29] MEDS: PATCH REMOVAL 1 EA PATCH TD SCH (09:05)
[2017-11-29] MEDS: SENNOSIDES/DOCUSATE SODIUM TAB PO SCH (09:12)
--- NOTE | 2017-11-29 11:42 | PCMIDPN ---
Assessment/Plan: 1. Multilobar pneumonia: Continue Unasyn as is for 5 more days to complete 10 days of therapy in the setting of severe aspiration pneumonia. Will fill out inter agency form. 2. 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 Asked patient previously whether not she had had a flu vaccine, and she reported, " I do not do vaccines.". I did not press the issue. 3. Oral candidiasis: Thrush has disappeared. Continue clotrimazole to complete 14 days of treatment. Subjective: In excellent spirits today. Very loquacious. No diarrhea. Not really coughing. Understands that she is aspirating, and this could recur. Declines feeding tube. Objective: Unasyn 3 g IV q.6 hours antibiotics day 5 out a 10 No fevers 93% on room air Vital Signs Temp Pulse Resp BP Pulse Ox 36.6 C 91 17 163/83 H 93 11/29/17 07:19 11/29/17 07:19 11/29/17 07:19 11/29/17 07:19 11/29/17 07:19 Laboratory Results 11/28/17 05:30 11/29/17 05:10 11/28/17 11/29/17 11/30/17 05:59 05:59 05:59 Intake Total 320 Output Total 950 200 550 Balance -950 120 -550 - Physical Exam General Appearance: alert, no apparent distress EENT: pharynx normal, No thrush Respiratory: other (Her lungs are clear!) Extremities: other (PICC line right upper extremity looks fine) Abdomen: non-tender, soft ICD10 Worksheet Patient Problems: Problems Problem Status Onset Acute exacerbation of chronic low back pain Acute Central stenosis of spinal canal Acute Closed compression fracture of L4 lumbar vertebra Acute DDD (degenerative disc disease), lumbar Acute Herniation of intervertebral disc of lumbar spine Acute Venous ulcer of left leg Acute Empyema Active Hypokalemia Active Osteoarthritis of hip Active
[2017-11-29 11:43] VITALS: BP 156/76
--- NOTE | 2017-11-29 11:43 | PDIAF ---
- Diagnosis Diagnosis: Aspiration pneumonia Code Status: Do Not Resuscitate - Medication Management Discharge Medications: Medications to Continue on Transfer Simvastatin [Zocor] 40 mg PO DAILY18 04/26/11 [Last Taken 11/22/17] Aspirin [Aspirin 325 mg (OTC)] 325 mg PO Q6 PRN 09/12/11 [Last Taken 11/23/17] Acetaminophen [Pain Reliever] 650 mg PO Q6 PRN 10/01/11 [Last Taken 11/23/17] Cortisone Acetate [Cortisone (RX)] 37.5 - 50 mg PO DAILY 10/01/11 [Last Taken ] Lisinopril [Zestril 20 mg (*)] 20 mg PO DAILY 10/01/11 [Last Taken 04/06/13 07: 00] oxyCODONE IR [Oxycodone HCl Ir] 1 - 2 tab PO TID PRN 10/01/11 [Last Taken ] Calcium Carbonate [Tums 500MG (OTC)] 750 mg PO DAILY 03/30/13 [Last Taken ] Levothyroxine [Synthroid 88 mcg (RX)] 88 mcg PO DAILY06 03/30/13 [Last Taken ] Multivitamins [Tab-A-Karel] 1 each PO DAILY 03/30/13 [Last Taken 11/23/17] Sodium Chloride [Salt Tablet] 1 gm PO AD PRN 03/30/13 [Last Taken 04/04/13] Penitentiary Antibiotics: Unasyn 3 g IV q.6 hours Penitentiary Antibiotic Stop Date: 12/04/17 Discharge Medications: Refer to the Discharge Home Medication list for PRN reason. PICC Care - Routine: Yes - Orders Diet Texture: Regular Texture Diet, [place] Thick Liquids, Meds Crushed in Puree Additional Instructions: wound care orders Change dressings to left lower leg every 2 days and prn. 1. Clean with ns and gauze 2. Skin prep shalini wound 3. Wound gel to wound bed 4. Cover with Allevyn Life Change dressings to lower back every 3 days and prn. 1. Clean with ns and gauze 2. Skin prep shalini wound 3. Wound gel to wound bed 4. Cover with Allevyn Life Please follow up within 3- 4 weeks of discharge with outpatient Wound Healing Center if you continue to have issues with your wounds: You may reach them at [phone] for an appointment and continued management of your wounds. Please call them [facility] to schedule your appointment as they fill up quickly. If before that time you have any issues, please follow up with your PCP. Wound care: Bedsore (Pressure injury) care: You have a deep tissue pressure injury (also known as a bedsore) on the lumbar area of your back. To help heal this wound and avoid further injury please do the followin. Reposition yourself frequently, at least every 15 minutes when sitting. Try to stand for at least 3 min every hour so that the tissues fully reperfuse with blood. We recommend sitting on an air cushion. Please never use a doughnut. 2. When youre in bed, try to rest on your side as much as possible, and change position every two hours (for example, turn or tilt from your right side toward your left).~ If you sleep on a sleep number or medical bed, keep the head of the bed below 30 degrees and keep all pressure off your low back for at least 5 minutes at least every two hours.~ 3. As needed, you may use Calazime, dimethicone moisture barrier cream, or any zxmr-hoc-qcdstbg diaper rash cream to help prevent or treat a moisture- related rash to your bottom area and buttocks. 4. Please contact [facility] outpatient [facility]aling Center for an appointment, at [phone], If your wounds re/open or dont improve, or if you have any further questions or concerns. Rosa Maria Kim RN Wound Care Team - Follow Up Care Current Providers and Referrals: Tyler Faulkner MD [Primary Care Provider] - As per Instructions
--- NOTE | 2017-11-29 11:56 | PDIAF ---
- Diagnosis Diagnosis: Aspiration pneumonia Code Status: Do Not Resuscitate - Medication Management Discharge Medications: Medications to Continue on Transfer Simvastatin [Zocor 40 mg] 40 mg PO DAILY18 04/26/11 [Last Taken 11/22/17] Aspirin [Aspirin 325 mg (*)] 325 mg PO Q6 PRN 09/12/11 [Last Taken 11/23/17] Cortisone Acetate [Cortisone (*)] 37.5 - 50 mg PO DAILY 10/01/11 [Last Taken ] Lisinopril [Zestril 20 mg (*)] 20 mg PO DAILY 10/01/11 [Last Taken 04/06/13 07: 00] oxyCODONE IR [Oxycodone Ir (*)] 1 - 2 tab PO TID PRN 10/01/11 [Last Taken ] Calcium Carbonate [Tums 500MG (*)] 750 mg PO DAILY 03/30/13 [Last Taken 11/23/17 ] Multivitamins [Multivitamin (*)] 1 each PO DAILY 03/30/13 [Last Taken 11/23/17] Sodium Chloride [Salt Tablet] 1 gm PO AD PRN 03/30/13 [Last Taken 04/04/13] Acetaminophen [Tylenol 325mg (*)] 650 mg PO Q4HRS PRN tab 11/29/17 [Last Taken Unknown] Ampicillin/Sulbactam [Unasyn] 3 gm IV Q6 vial 11/29/17 [Last Taken Unknown] Clotrimazole [Mycelex (*)] 10 mg PO 5XD #25 celina 11/29/17 [Last Taken Unknown] Levothyroxine [Synthroid 75 mcg (*)] 75 mcg PO DAILY AT 6AM tab 11/29/17 [Last Taken Unknown] Lidocaine 4%/Menthol 1% [Icy Hot Lidocaine/Menthol 4%/1% Patch (*)] 1 patch TD DAILY@2100 patch 11/29/17 [Last Taken Unknown] Ondansetron Odt [Zofran Odt 4 mg (*)] 4 mg PO Q4HRS PRN tab 11/29/17 [Last Taken Unknown] Patch Removal 1 ea TD DAILY patch 11/29/17 [Last Taken Unknown] Polyethylene Glycol 3350 [Miralax 17 gm (*)] 17 gm PO DAILY PRN pkt 11/29/17 [ Last Taken Unknown] Sennosides/Docusate Sodium [Senokot-S] 1 - 2 tab PO BID tab 11/29/17 [Last Taken Unknown] amLODIPine BESYLATE [Norvasc 2.5 mg (*)] 2.5 mg PO DAILY tab 11/29/17 [Last Taken Unknown] Retirement Antibiotics: Unasyn 3 g IV q.6 hours Retirement Antibiotic Stop Date: 12/04/17 Discharge Medications: Refer to the Discharge Home Medication list for PRN reason. PICC Care - Routine: Yes - Orders Services needed: Physical Therapy, Occupational Therapy Diet Recommendation: no restrictions on diet Diet Texture: Regular Texture Diet, [place] Thick Liquids, Meds Crushed in Puree Additional Instructions: wound care orders Change dressings to left lower leg every 2 days and prn. 1. Clean with ns and gauze 2. Skin prep shalini wound 3. Wound gel to wound bed 4. Cover with Allevyn Life Change dressings to lower back every 3 days and prn. 1. Clean with ns and gauze 2. Skin prep shalini wound 3. Wound gel to wound bed 4. Cover with Allevyn Life Please follow up within 3- 4 weeks of discharge with outpatient Wound Healing Center if you continue to have issues with your wounds: You may reach them at [phone] for an appointment and continued management of your wounds. Please call them [facility] to schedule your appointment as they fill up quickly. If before that time you have any issues, please follow up with your PCP. Wound care: Bedsore (Pressure injury) care: You have a deep tissue pressure injury (also known as a bedsore) on the lumbar area of your back. To help heal this wound and avoid further injury please do the followin. Reposition yourself frequently, at least every 15 minutes when sitting. Try to stand for at least 3 min every hour so that the tissues fully reperfuse with blood. We recommend sitting on an air cushion. Please never use a doughnut. 2. When youre in bed, try to rest on your side as much as possible, and change position every two hours (for example, turn or tilt from your right side toward your left).~ If you sleep on a sleep number or medical bed, keep the head of the bed below 30 degrees and keep all pressure off your low back for at least 5 minutes at least every two hours.~ 3. As needed, you may use Calazime, dimethicone moisture barrier cream, or any fvsa-ryx-eaywelp diaper rash cream to help prevent or treat a moisture- related rash to your bottom area and buttocks. 4. Please contact [facility] outpatient Wound Healing Center for an appointment, at , If your wounds re/open or dont improve, or if you have any further questions or concerns. Rosa Maria Kim RN Wound Care Team repeat TSH in 6 weeks, Synthroid dose has been decrease due to low TSH - Follow Up Care Current Providers and Referrals: Tyler Faulkner MD [Primary Care Provider] - As per Instructions
--- NOTE | 2017-11-29 12:35 | GDS ---
DISCHARGE DIAGNOSES: 1. Right-sided pneumonia, multilobar. 2. Dysphagia. 3. Acute exacerbation of chronic low back pain. 4. Venous ulcer of the left leg. 5. Hypokalemia. 6. Hypertensive urgency. 7. Jamin's disease, status post adrenalectomy. 8. Hypothyroidism. 9. Tachycardia. 10. Oral candidiasis. 11. Lumbar wound. 12. Weakness. 13. Anemia. CONSULTATIONS: 1. Dr. Ran Bonds. 2. MARAH Mckeon with neurosurgical services. HISTORY OF PRESENT ILLNESS: Briefly, Ary Walker is at 81-year-old woman with a past medical his tory of empyema due to Streptococcus intermedius in 2011. She was admitted on November 24, with wors ening low back pain. She has received back injections at [facility] with progressive back pain. She can no longer walk and she was admitted for further evaluation. She was seen and evaluated by Neuro surgery, who recommended another steroid injection. She said she would prefer no further injections. She had a chest x-ray performed on admission, which showed a right-sided consolidation with new con solidation present in the upper lung conrad suggesting pneumonia. She also had apical pleural thicke cynthia and nodularity. She also had an MRI of the lumbar spine which showed severe central canal narro wing at L2-3 and L3-4 with no evidence of osteomyelitis, diskitis, or epidural abscess. She was andrea dinah with antibiotics. She was seen and evaluated by Speech Therapy. She had a video esophagram that showed she had significant aspiration. The patient does not want any type of feeding tube and is do ing exercises that the speech therapist has shown her. Today she [facility] and for ongoing IV antibiotics. HOSPITAL COURSE: 1. Right-sided pneumonia. This is multilobar. Her antibiotics were changed to Unasyn because she w as aspirating. She is markedly improved. Blood culture shows no growth. Her leukocytosis is improv ing. She has a PICC line in place. 2. Dysphagia. Speech Therapy has been working with her. She is very motivated to do the exercises. She does not want any further intervention. 3. Acute exacerbation of chronic low back pain. She had an MRI done and Neurosurgery is recommendin g injection. She does not want this. She can follow up with [facility]. She is able to manage her pain getting out of bed and is able to walk to the bathroom. 4. Venous ulcer. She is getting wound care. 5. Hypokalemia, on replacement. 6. Hypertensive urgency. She is on lisinopril. Norvasc has been added. This dose may need to be i ncreased. 7. Jamin's disease. She is status post adrenalectomy. We have resumed her home steroids. 8. Hypothyroidism. Her TSH was low so her replacement dose was decreased. 9. Sinus tachycardia. This is intermittent. I reviewed that there is a chance that she could have a pulmonary emboli. She does not want any further imaging done. 10. Oral candidiasis. She is on clotrimazole celina 5 times daily. 11. Lumbar wound. This was present prior to admission. She is getting wound care for this. 12. Weakness. This is quite severe. She will go to intermediate facility for rehab. 13. Anemia. Most recent hemoglobin was 10, hematocrit of 29.5. DISCHARGE CONDITION: Stable. Blood pressure is 156/76, heart rate of 96, respiratory rate of 20, O2 saturation on room air 92%, temperature is 36.8 Celsius. MEDICATIONS AT DISCHARGE: Please see the EMR. DISCHARGE INSTRUCTIONS: 1. Have been written in detail as far as wound care. 2. To get a TSH checked in 6 weeks. She had a low TSH and her Synthroid dose was decreased. Greater than 30 minutes discharging and coordinating the patient's care. /[id number]/MODL
--- NOTE | 2017-11-29 16:22 | ASMTCMCOM ---
CM Note CM Note Notes: Pt medically stable for d/c to [facility]. Orders sent in Allscripts. WC transport scheduled by Shira watts [facility]. FIDENCIO Box called report. Date Signed: 11/29/2017 04:21 PM Electronically Signed By:ERICK Holm
--- NOTE | 2017-11-29 16:22 | ASDISCHSUM ---
Discharge Information Plan Status:SNF Medically Cleared to Leave: Discharge Date:11/29/2017 02:50 PM CM D/C Disposition:Halfway Facility ADT D/C Disposition:Halfway Facility Projected Discharge Date:11/27/2017 11:00 AM Transportation at D/C:Wheelchair Van Discharge Delay Reason: Follow-Up Date:11/27/2017 11:00 AM Discharge Slot: Final Diagnosis: Placement Information Referral Type:*Assisted/SNF Referral ID:[id number] Provider Name:[facility] Address 1:[address] Address 2: City:[place] Selection Factors: State:[place] Patient Contact Information Contact Name:RENEE Relationship:Daughter Address: Work Phone: [facility]:[place] Alternate Phone: [facility]/Zip Code:[place] Email: Financial Information Financial Class:Medicare Primary Plan Desc:MEDICARE INPATIENT Primary Plan Number:[id number] Secondary Plan Desc: Secondary Plan Number: Assessment Information LACE LACE Length of stay for Answers: 4-6 days current admission Acuity / Level of Answers: Yes Care: Did the patient have an inpatient admission? Comorbidities - select Answers: Opioid dependence all that apply / Chronic pain Other Notes: Jamin's disease; HTN; Hypothyro id # of Emergency department Answers: 1-2 visits in the last 6 months Score: 13 Date Signed: 11/29/2017 04:19 PM Electronically Signed By:ERICK Holm [facility] DMITRI Progress Note CM Note CM Note Notes: Patient admitted with acute chronic back pain. She was seen in the ER in July for the same. Per patient, she is normally independent but the pain is interfering with her ADLs. She was seen by neurosurgery today, and they will make a plan with her based on her imaging. Therapies will see her tomorrow. Case Management will follow. Date Signed: 11/24/2017 02:12 PM Electronically Signed By:Lenka Husain RN [facility] CM Progress Note CM Note CM Note Notes: Pt amenable to OT rec for SNF. Pt accepted at [facility], [facility] and [facility], chooses [facility] (Shira met with pt today). Pt to have video swallow tomorrow. CM to follow. D/c plan of care: [facility] SNF when medically stable. Date Signed: 11/26/2017 02:41 PM Electronically Signed By:ERICK Holm [facility] CM Progress Note CM Note CM Note Notes: Pt medically stable for d/c to [facility] SNF. Orders sent in Allscripts. WC transport scheduled by Shira Rashid. FIDENCIO Box called report. Date Signed: 11/29/2017 04:21 PM Electronically Signed By:ERICK Holm Intervention Information Intervention Type:*Incorrect Registration Date of Service:11/24/2017 09:47 AM Patient Type:Inpatient Staff Member:Hue Elizalde Hours: Discipline: Severity: Comment:
== END 2017-11-29 14:50 | DRG 551 ==
LOC: INTOOBSV 18:00 → F3N 18:32 → OBSVTOIN 11-24 11:52
PROVIDERS: ADMIT Internal Medicine; ATTEND Internal Medicine
PROC: 02H633Z Insertion of Infusion Device into Right Atrium, Percutaneous Approach (ICD-10-PCS; principal; 2017-11-25)
DX: M51.36 Other intervertebral disc degeneration, lumbar region (principal); J18.1 Lobar pneumonia, unspecified organism; E24.9 Cushing's syndrome, unspecified; B37.0 Candidal stomatitis; M48.56XA Collapsed vertebra, not elsewhere classified, lumbar region, initial encounter for fracture; M48.061 Spinal stenosis, lumbar region without neurogenic claudication; M51.26 Other intervertebral disc displacement, lumbar region; M41.86 Other forms of scoliosis, lumbar region; E86.9 Volume depletion, unspecified; R13.10 Dysphagia, unspecified; G89.29 Other chronic pain; I83.028 Varicose veins of left lower extremity with ulcer other part of lower leg; L89.149 Pressure ulcer of left lower back, unspecified stage; E87.6 Hypokalemia; I16.0 Hypertensive urgency; E03.9 Hypothyroidism, unspecified; R00.0 Tachycardia, unspecified; D64.9 Anemia, unspecified
CPT/HCPCS: 87449-90; 92526-GN; 92610-GN; 92611-GN; 97116-GP; 97162-GP; 97166-GO; 97530-GO; 97535-GO; A9585; C1751; G0378; G8978-GP-CJ; G8979-GP-CI; G8980-GP-CI; G8987-GO-CK; G8988-GO-CI; G8996-GN-CH; G8996-GN-CK; G8997-GN-CH; G8997-GN-CI; J0295; J0456; J0696; J1170; J1650; J2997; J3480

== ENCOUNTER → 2018-04-01 | Outpatient (CLI) | payer OTHER | LOC: FIMAGING 11:19 | PROVIDERS: ATTEND Radiology Diagnostic Radiology | DX: L97.919 Non-pressure chronic ulcer of unspecified part of right lower leg with unspecified severity (principal); E83.19 Other disorders of iron metabolism; R60.0 Localized edema ==

== ENCOUNTER 2018-06-15 12:46 | Emergency (ER) | payer OTHER, MEDICAID ==
--- NOTE | 2018-06-15 13:19 | EDPHY ---
H & P Stated Complaint: intermittent swelling r foot x 1 week Time Seen by Provider: 06/15/18 13:18 HPI/ROS: CHIEF COMPLAINT: Right leg swelling HISTORY OF PRESENT ILLNESS: The patient presents the ED with intermittent right leg swelling over the past week. The patient does have a history of a small ulcer on her right leg which is currently being followed by [facility]. The patient denies any history of fall or trauma. The patient denies any pleuritic chest pain. She does have some asymmetric right calf tenderness. She complains primarily of painful edema in her right foot. She denies any symptoms of claudication. She does have a history of chronic sciatic back pain which is unchanged. Patient denies fever, vomiting or additional medical complaints. REVIEW OF SYSTEMS: A comprehensive 10 point review of systems is otherwise negative aside from elements mentioned in the history of present illness. Source: Patient Exam Limitations: No limitations - Personal History Current Tetanus Diphtheria and Acellular Pertussis (TDAP): Unsure Tetanus Vaccine Date: <10 YRS - Medical/Surgical History Hx Asthma: No Hx Chronic Respiratory Disease: No Hx Diabetes: No Hx Cardiac Disease: No Hx Renal Disease: No Hx Cirrhosis: No Hx Alcoholism: No Hx HIV/AIDS: No Hx Splenectomy or Spleen Trauma: No Other PMH: [place]'s, scoliosis, OA, hypothyroid BACK PAIN - Social History Smoking Status: Never smoked - Physical Exam Exam: General Appearance: Elderly female, no acute distress Eyes: Pupils equal and round no pallor or injection ENT, Mouth: Mucous membranes moist Respiratory: There are no retractions, lungs are clear to auscultation Cardiovascular: Regular rate and rhythm Gastrointestinal: Brace around abdomen, abdomen soft, normal bowel sounds Neurological: 5/5 strength noted all 4 extremities Skin: Asymmetric edema noted primarily in the right foot with suggestion of mild stasis dermatitis Musculoskeletal: Normal range of motion without evidence of septic arthritis clinically. Extremities: Mild right calf tenderness to palpation and asymmetry relative to the left Psychiatric: Patient is oriented X 3, there is no agitation Constitutional: Initial Vital Signs Temperature (C) 36.6 C 06/15/18 12:53 Heart Rate 121 H 06/15/18 12:53 Respiratory Rate 18 06/15/18 12:53 Blood Pressure 149/72 H 06/15/18 12:53 O2 Sat (%) 95 06/15/18 12:53 O2 Delivery Mode Room Air Allergies/Adverse Reactions: atorvastatin calcium [From Lipitor] Allergy (Severe, Verified 06/15/18 12:50) MUSCLE WEAKNESS/CRAMPING IN THIGHS Home Medications: Medication Instructions Recorded Simvastatin [Zocor 40 mg] 40 mg PO DAILY18 04/26/11 Aspirin [Aspirin 325 mg (*)] 325 mg PO Q6 PRN 09/12/11 Cortisone Acetate [Cortisone (*)] 37.5 - 50 mg PO DAILY 10/01/11 Lisinopril [Zestril 20 mg (*)] 20 mg PO DAILY 10/01/11 oxyCODONE IR [Oxycodone Ir (*)] 1 - 2 tab PO TID PRN 10/01/11 Calcium Carbonate [Tums 500MG (*)] 750 mg PO DAILY 03/30/13 Multivitamins [Multivitamin (*)] 1 each PO DAILY 03/30/13 Sodium Chloride [Salt Tablet] 1 gm PO AD PRN 03/30/13 Acetaminophen [Tylenol 325mg (*)] 650 mg PO Q4HRS PRN tab 11/29/17 Clotrimazole [Mycelex (*)] 10 mg PO 5XD #25 celina 11/29/17 Levothyroxine [Synthroid 75 mcg 75 mcg PO DAILY AT 6AM tab 11/29/17 (*)] Lidocaine 4%/Menthol 1% [Icy Hot 1 patch TD DAILY@2100 patch 11/29/17 Lidocaine/Menthol 4%/1% Patch (*)] Ondansetron Odt [Zofran Odt 4 mg 4 mg PO Q4HRS PRN tab 11/29/17 (*)] Patch Removal 1 ea TD DAILY patch 11/29/17 Polyethylene Glycol 3350 [Miralax 17 gm PO DAILY PRN pkt 11/29/17 17 gm (*)] Sennosides/Docusate Sodium 1 - 2 tab PO BID tab 11/29/17 [Senokot-S] amLODIPine BESYLATE [Norvasc 2.5 2.5 mg PO DAILY tab 11/29/17 mg (*)] Apixaban [Eliquis] 10 mg PO BID 7 Days tab 06/15/18 Medical Decision Making - Diagnostics EKG Interpretation: EKG: Complete interpretation has been separately recorded in the [facility] archive. Summary impression: Sinus rhythm, rate 89 Imaging Results: Imaging Impressions Extremity Venous Study 06/15/18 13:24 Impression: Positive deep venous thrombosis and superficial thrombophlebitis involving the right common femoral vein and deep femoral vein/profunda. Findings and recommendations discussed with Emergency Department physician, Cedric Stoddard at 14:47 hour, 06/15/2018. Final report concurs with initial preliminary interpretation. Chest/Thorax CTA 06/15/18 15:09 Impression: 1. No pulmonary embolism. 2. Residual scarring and loss of volume of the right hemithorax due to extensive right-sided pneumonia, now resolved. 3. Suspect moderate left hydronephrosis, new since last year. 4. Peritoneal ultrasound is recommended for further assessment. 4. Cholelithiasis. Findings and recommendations discussed with Cedric Stoddard at 4:11 p.m. on . Final report concurs with initial preliminary interpretation. ED Course/Re-evaluation: The patient presents to the ED for evaluation of asymmetric calf pain and swelling. The patient was taken for an ultrasound which does demonstrate evidence of a DVT. The patient was noted to be tachycardic upon arrival. She sources no symptoms of chest pain or shortness of breath however given her tachycardia further workup was undertaken including an EKG which demonstrates a sinus rhythm at a rate of 89. CT pulmonary angiogram demonstrates no evidence of a PE. I re-evaluated the patient at 4:30 p.m. And she is hemodynamically stable. I spoke with Dacia from Dr. Faulkner's office who will schedule a follow-up appointment with the patient this week. The patient will be started on Eliquis 10 mg twice daily for the next 7 days. Per primary care provider's office will transition her to 5 mg twice daily dosing this week. Differential Diagnosis: Differential diagnosis considered includes pulmonary embolism, DVT, cellulitis, abscess, gouty arthritis - Data Points Laboratory Results: Laboratory Results 06/15/18 14:55 06/15/18 14:52 06/15/18 06/15/18 06/15/18 15:04 14:55 14:55 WBC 14.22 10^3/uL H 10^3/uL (3.80-9.50) RBC 4.10 10^6/uL L 10^6/uL (4.18-5.33) Hgb 12.9 g/dL g/dL (12.6-16.3) POC Hgb 14.6 gm/dL gm/dL (12.6-16.3) Hct 40.4 % % (38.0-47.0) POC Hct 43 % % (38-47) MCV 98.5 fL fL (81.5-99.8) MCH 31.5 pg pg (27.9-34.1) MCHC 31.9 g/dL L g/dL (32.4-36.7) RDW 14.8 % % (11.5-15.2) Plt Count 385 10^3/uL 10^3/uL (150-400) MPV 9.2 fL fL (8.7-11.7) Neut % (Auto) 86.0 % H % (39.3-74.2) Lymph % (Auto) 8.1 % L % (15.0-45.0) [place] % (Auto) 5.0 % % (4.5-13.0) Eos % (Auto) 0.0 % L % (0.6-7.6) Baso % (Auto) 0.3 % % (0.3-1.7) Nucleat RBC Rel Count 0.0 % % (0.0-0.2) Absolute Neuts (auto) 12.24 10^3/uL H 10^3/uL (1.70-6.50) Absolute Lymphs (auto) 1.15 10^3/uL 10^3/uL (1.00-3.00) Absolute Monos (auto) 0.71 10^3/uL 10^3/uL (0.30-0.80) Absolute Eos (auto) 0.00 10^3/uL L 10^3/uL (0.03-0.40) Absolute Basos (auto) 0.04 10^3/uL 10^3/uL (0.02-0.10) Absolute Nucleated RBC 0.00 10^3/uL 10^3/uL (0-0.01) Immature Gran % 0.6 % % (0.0-1.1) Immature Gran # 0.08 10^3/uL 10^3/uL (0.00-0.10) PT 12.3 SEC SEC (12.0-15.0) INR 0.95 (0.83-1.16) APTT 24.2 SEC SEC (23.0-38.0) POC Sodium 143 mEq/L mEq/L (135-145) Sodium POC Potassium 3.1 mEq/L L mEq/L (3.3-5.0) Potassium POC Chloride 103 mEq/L mEq/L (97-110) Chloride Carbon Dioxide POC Total CO2 30 mEq/L mEq/L (22-31) Anion Gap POC BUN 18 mg/dL mg/dL (7-23) BUN Creatinine POC Creatinine 0.6 mg/dL mg/dL (0.6-1.0) Estimated GFR Glucose POC Glucose 79 mg/dL mg/dL (70-100) Calcium 06/15/18 14:52 WBC RBC Hgb POC Hgb Hct POC Hct MCV MCH MCHC RDW Plt Count MPV Neut % (Auto) Lymph % (Auto) [place] % (Auto) Eos % (Auto) Baso % (Auto) Nucleat RBC Rel Count Absolute Neuts (auto) Absolute Lymphs (auto) Absolute Monos (auto) Absolute Eos (auto) Absolute Basos (auto) Absolute Nucleated RBC Immature Gran % Immature Gran # PT INR APTT POC Sodium Sodium 140 mEq/L mEq/L (135-145) POC Potassium Potassium 3.6 mEq/L mEq/L (3.5-5.2) POC Chloride Chloride 101 mEq/L mEq/L (97-110) Carbon Dioxide 31 mEq/l mEq/l (22-31) POC Total CO2 Anion Gap 8 mEq/L mEq/L (6-14) POC BUN BUN 19 mg/dL mg/dL (7-23) Creatinine 0.6 mg/dL mg/dL (0.6-1.0) POC Creatinine Estimated GFR > 60 Glucose 80 mg/dL mg/dL (70-100) POC Glucose Calcium 9.5 mg/dL mg/dL (8.5-10.4) Point of Care Test Results: Chemistry 06/15/18 15:04 POC Sodium 143 mEq/L mEq/L (135-145) POC Potassium 3.1 mEq/L L mEq/L (3.3-5.0) POC Chloride 103 mEq/L mEq/L (97-110) POC Total CO2 30 mEq/L mEq/L (22-31) POC BUN 18 mg/dL mg/dL (7-23) POC Creatinine 0.6 mg/dL mg/dL (0.6-1.0) POC Glucose 79 mg/dL mg/dL (70-100) ISTAT H&H 06/15/18 15:04 POC Hgb 14.6 gm/dL gm/dL (12.6-16.3) POC Hct 43 % % (38-47) Departure - Departure Disposition: Home, Routine, Self-Care Clinical Impression: DVT (deep venous thrombosis) Qualifiers: DVT location: lower extremity Chronicity: acute Laterality: right Condition: Good Instructions: Deep Vein Thrombosis (ED) Additional Instructions: 1. Please begin Eliquis as directed for the blood clot in your leg. 2. You will need to switch to a new dose after 7 days of treatment. 3. Dr. Tyler Faulkner is office will contact you tomorrow to schedule a follow -up visit. Referrals: Tyler Faulkner MD [Primary Care Provider] - As per Instructions
[2018-06-15 15:13] LABS: PLATELET COUNT 385 10^3/uL (150-400)
[2018-06-15 15:22] LABS: INR 0.95 (0.83-1.16); PROTIME(PATIENT) 12.3 SEC (12.0-15.0)
[2018-06-15] MEDS ORDERED: IOPAMIDOL (ISOVUE 370) 100 ML BTL IV ONE (15:35)
--- NOTE | 2018-06-15 15:46 | CPEKG ---
Test Reason : OPEN Blood Pressure : / mmHG Vent. Rate : 089 BPM Atrial Rate : 089 BPM P-R Int : 148 ms QRS Dur : 079 ms QT Int : 391 ms P-R-T Axes : 066 031 069 degrees QTc Int : 476 ms Sinus rhythm Anterior infarct, old Confirmed by Cedric Stoddard ([id number]) on 06/15/2018 3:45:32 PM Referred By: Cedric Stoddard Confirmed By:Cedric Stoddard
[2018-06-15 16:21] VITALS: BP 198/100
== END 2018-06-15 17:13 | disposition home or self-care (01) ==
DX: I82.4Z1 Acute embolism and thrombosis of unspecified deep veins of right distal lower extremity (principal); L97.919 Non-pressure chronic ulcer of unspecified part of right lower leg with unspecified severity; E03.9 Hypothyroidism, unspecified
CPT/HCPCS: 71275; 93005; 93971; 99285; Q9967; 82435-PO; 82565-PO; 82947-PO; 84132-PO; 84295-PO; 84520-PO; 85014-ER